=== PATIENT | male | born 1965 | race Caucasian/White ===

== ENCOUNTER 2016-09-04 15:00 | Inpatient (IN) | payer OTHER, MEDICARE ==
[~2016-09-04] VITALS: Ht 175.3 cm; Wt 117.2 kg
[2016-10-30] MEDS ORDERED: MULT-6 PO (12:07)
[2016-10-30] MEDS ORDERED: TRAM50TA PO (12:07)
[2016-10-30] MEDS ORDERED: LISI-515 PO (12:07)
[2016-10-30] MEDS ORDERED: FISH500C PO (12:07)
[2016-11-16] MEDS ORDERED: EXPAREL PERI-ARTICULAR INJECTION (TOTAL VOL. 60 ML) P-ARTICULR SCH ×2 (06:15)
[2016-11-16] MEDS: CHLORHEXIDINE GLUCONATE 4% SOLN 120 ML BTL TOP SCH ×2 (06:15→20:22)
[2016-11-16] MEDS: TRANEXAMIC ACID IV SCH ×2 (06:15→08:49)
[2016-11-16] MEDS ORDERED: ceFAZolin 2 GM PREMIX 50 ML IV SCH (06:15)
[2016-11-16] MEDS: TRANEXAMIC PERI-ARTICULAR 3,000 MG/NS 100 ML P-ARTICULR SCH ×4 (06:15→09:20)
[2016-11-16] MEDS: SODIUM CHLORIDE 0.9% IV SCH ×2 (06:15→08:49)
[2016-11-16] MEDS: ROPIVACAINE PERI-ARTICULAR INJECTION. PERIART SCH ×10 (06:15→09:20)
[2016-11-16] MEDS ORDERED: VANCOMYCIN 1000 MG/NS 250 ML (for <70 kg) IV SCH ×2 (06:15)
[2016-11-16] MEDS ORDERED: DEXAMETHASONE SOD PHOS 20 MG/5 ML VIAL IV ONE (06:15)
[2016-11-16] MEDS: POVIDONE IODINE 7.5% SCRUB 118 ML BOTTLE TOP SCH ×2 (06:15→20:22)
[2016-11-16] MEDS ORDERED: VALT500T PO (06:27)
[2016-11-16] MEDS ORDERED: METOPROLOL TARTRATE 25 MG TAB PO PRN (06:30)
[2016-11-16] MEDS ORDERED: INSULIN HUMAN REGULAR 1,000 UNITS/10 ML VIAL SQ PRN (06:30)
[2016-11-16] MEDS ORDERED: SODIUM CHLORID 0.9% 500 ML IV SCH (06:30)
[2016-11-16] MEDS ORDERED: LACTATED RINGER'S 1000 ML IV SCH (06:30)
[2016-11-16 06:31] VITALS: BP 159/94; PULSE 59; RESP 20; TEMP 98.2; O2SAT 95
[2016-11-16] MEDS ORDERED: GENTAMICIN SULFATE 80 MG/2 ML VIAL ONE (07:02)
[2016-11-16] MEDS ORDERED: APIX2.5T PO (07:20)
[2016-11-16] MEDS ORDERED: HYDR-3288 PO (07:21)
[2016-11-16] MEDS ORDERED: ZOLPIDEM TARTRATE 5 MG TAB PO PRN (07:30)
[2016-11-16] MEDS ORDERED: SODIUM CHLORIDE 0.9% FLUSH 5 ML FLUSH IVF PRN (07:30)
[2016-11-16] MEDS ORDERED: diphenhydrAMINE HCL 50 MG/ML VIAL IV PRN (07:30)
[2016-11-16] MEDS ORDERED: Post-op Orders (for Pharmacy) MISC XX ONE (07:30)
[2016-11-16] MEDS ORDERED: ACETAMINOPHEN/HYDROcodone 325 MG/7.5 MG TAB PO PRN (07:30)
[2016-11-16] MEDS ORDERED: ALUMINUM/MAGNESIUM/SIMETH 30 ML CUP PO PRN (07:30)
[2016-11-16] MEDS ORDERED: ONDANSETRON HCL 4 MG/2 ML VIAL IVP PRN (07:30)
[2016-11-16] MEDS ORDERED: NALOXONE HCL 0.4 MG/ML AMP IV PRN (07:30)
[2016-11-16] MEDS ORDERED: BISACODYL 10 MG SUPP PR PRN (07:30)
[2016-11-16] MEDS ORDERED: MIDAZOLAM HCL 5 MG/5 ML VIAL ONE (07:59)
[2016-11-16] MEDS: SODIUM CHLORIDE 0.9% FLUSH 5 ML FLUSH IVF SCH ×2 (09:00→20:26)
[2016-11-16] MEDS: LISINOPRIL 20 MG TAB PO SCH (09:00)
[2016-11-16] MEDS: SODIUM CHLOR 0.9% 1000 ML INJ 1,000 ML IV SCH ×3 (09:00→20:22)
[2016-11-16] MEDS ORDERED: *morphine SULFATE 8 MG/ML PERIprocedure ONLY ONE (11:14)
--- NOTE | 2016-11-16 11:33 | RADRPT ---
EXAM DATE/TIME: 11/16/2016 11:06 [facility] COMPARISON: No previous studies available for comparison. INDICATIONS : Post right knee surgery MEDICAL HISTORY : None. SURGICAL HISTORY : None. ENCOUNTER: Initial ACUITY: 1 day PAIN SCORE: 6/10 LOCATION: Right knee FINDINGS: AP and lateral views of the knee following arthroplasty reveals a prosthesis in anatomic alignment. F racture is not appreciated. CONCLUSION: Status post total knee arthroplasty. Víctor Tran MD FACR Board Certified Radiologist. This report was verified electronically.
[2016-11-16] MEDS ORDERED: PROPOFOL 200 MG/20 ML AMP IV ONE (12:00)
[2016-11-16] MEDS ORDERED: DO NOT ADM ANY ANTICOAGULANT DRUGS XX PRN (12:00)
[2016-11-16] MEDS ORDERED: ONDANSETRON HCL 4 MG/2 ML VIAL IV PUSH ONE (12:00)
[2016-11-16] MEDS ORDERED: BUPIVACAINE LIPOSOME PF 1.3% 20 ML VIAL ONE (12:21)
[2016-11-16] MEDS ORDERED: fentaNYL CITRATE 250 MCG/5 ML AMP ONE (12:25)
[2016-11-16 12:30] VITALS: BP 146/75; PULSE 78; RESP 18; TEMP 96.7; O2SAT 94
--- NOTE | 2016-11-16 12:41 | PD.CONS ---
[facility] By Reason for Consult medical management Primary Care Physician Non-Staff Diagnoses: History of Present Illness patient is a 50 y/o male with history of osteoarthritis and hypertension who underwent right total knee arthroplasty today. at the time of my evaluation he was fairly comfortable with some pain to the right knee. otherwise he denies any other complaints. Review of Systems Constitutional: DENIES: Fever, Weight loss, Chills, Night Sweats Eyes: DENIES: Blurred vision, Diplopia, Vision loss, Double Vision Ears, nose, mouth, throat: DENIES: Tinnitus, Vertigo, Throat pain, Epistaxis Respiratory: DENIES: Apneas, Cough, Snoring, Wheezing, Hemoptysis, Sputum production, Shortness of breath Cardiovascular: DENIES: Chest pain, Palpitations, Syncope, Dyspnea on Exertion , PND, Lower Extremity Edema, Orthopnea, Claudication Gastrointestinal: DENIES: Abdominal pain, Black stools, Bloody stools, Constipation, Diarrhea, Nausea, Vomiting, Difficulty Swallowing, Anorexia Genitourinary: DENIES: Urinary frequency, Urgency, Hematuria, Dysuria Musculoskeletal: COMPLAINS OF: Joint pain (right knee), DENIES: Muscle aches, Stiffness, Joint Swelling Integumentary: DENIES: Rash Neurologic: DENIES: Abnormal gait, Headache, Localized weakness, Paresthesias, Seizures, Speech Problems, Tremor, Poor Balance Psychiatric: DENIES: Anxiety, Confusion, Mood changes, Depression, Hallucinations, Agitation, Suicidal Ideation, Homicidal Ideation, Delusions Past Family Social History Allergies: Coded Allergies: No Known Allergies (Unverified , 11/16/16) Past Medical History hypertension osteoarthritis history of genital herpes Past Surgical History appendectomy tonsillectomy elbow surgery Reported Medications lisinopril omega 3 Active Ordered Medications Current Medications Povidone Iodine (Betadine 7.5% Scrub) 1 applic ONCE TOP ; Start 11/16/16 at 06: 15; Stop 11/19/16 at 06:14 Chlorhexidine Gluconate 1 applic 1 applic ONCE TOP ; Start 11/16/16 at 06:15; Stop 11/19/16 at 06:14 Cefazolin Sodium/ Dextrose 50 ml @ 100 mls/hr PRODUCT SPECIALIST IV Last administered on 11/16/16t 07:08; Start 11/16/16 at 06:15; Stop 11/19/16 at 06:14 Vancomycin HCl 1000 mg/Sodium Chloride 250 ml @ 250 mls/hr PRODUCT SPECIALIST IV Last administered on 11/16/16 07:11; Start 11/16/16 at 06:15; Stop 11/19/16 at 06:14 Tranexamic Acid 1557 mg/Sodium Chloride 115.57 ml @ 200 mls/ hr ONCE IV Last administered on 11/16/16 08:49; Start 11/16/16 at 06:15; Stop 11/16/16 at 15:00 Bupivacaine Liposome 20 ml/ Sodium Chloride 60 ml @ 120 mls/hr ONCE P-ARTICULR ; Start 11/16/16 at 06:15; Stop 11/17/16 at 06:14 Ropivacaine 24.63 ml/Ketorolac Tromethamine 30 mg/Epinephrine HCl 0.5 mg/ Clonidine 80 mcg/ Sodium Chloride 100 ml @ 200 mls/hr ONCE PERIART Last administered on 11/16/16 09:20; Start 11/16/16 at 06:15; Stop 11/17/16 at 06:14 Tranexamic Acid/ Sodium Chloride (Cyklokapron Inj/ NS Inj) 130 ml @ 260 mls/hr ONCE P-ARTICULR Last administered on 11/16/16 09:20; Start 11/16/16 at 06:15; Stop 11/17/16 at 06:14 Dexamethasone Sodium Phosphate 10 mg 10 mg ONCE ONCE IV Last administered on 06:36; Start 11/16/16 at 06:15; Stop 11/16/16 at 06:16; Status DC Lactated Ringer's 1,000 ml @ 30 mls/hr Q24H IV Last administered on 11/16/16 06:30; Start 11/16/16 at 06:30; Stop 11/16/16 at 08:14; Status DC Sodium Chloride (NS 500 ml Inj) 500 ml @ 30 mls/hr [id number] IV ; Start 11/16/16 at 06:30; Stop 11/16/16 at 08:14; Status DC Insulin Human Regular (NovoLIN R INJ) See Protocol Table ... UNSCH X1 PRN SQ SEE PROTOCOL; Start 11/16/16 at 06:30; Stop 11/17/16 at 06:29 Metoprolol Tartrate (Lopressor) 25 mg UNSCH X1 PRN PO SEE LABEL COMMENTS; Start 11/16/16 at 06:30; Stop 11/17/16 at 06:29 Gentamicin Sulfate (Gentamicin Inj) 240 mg STK-MED ONCE .ROUTE Last administered on 11/16/16t 09:20; Start 11/16/16 at 07:02; Stop 11/16/16 at 07:14 ; Status DC Lisinopril 20 mg 20 mg DAILY PO ; Start 11/16/16 at 09:00 Sodium Chloride (NS 1000 ml Inj) 1,000 ml @ 100 mls/hr Q10H IV ; Start at 09:00 IV Flush (NS Flush) 2 ml UNSCH PRN IVF FLUSH AFTER USING IV ACCESS; Start 11/16 at 07:30 IV Flush 2 ml 2 ml BID IVF ; Start 11/16/16 at 09:00 Cefazolin Sodium/ Sodium Chloride (Ancef Inj/NS Inj) 100 ml @ 200 mls/hr Q6H IV ; Start 11/16/16 at 14:00; Stop 11/17/16 at 02:29 Miscellaneous Information (Post-op Orders (for Pharmacy)) STAT ONCE XX ; Start 11/16/16 at 07:30; Stop 11/16/16 at 11:48; Status DC Enoxaparin Sodium (Lovenox Inj) 40 mg Q24H SQ ; Start 11/17/16 at 10:00 Morphine Sulfate (Morphine Inj) 3 mg Q3H PRN IV PUSH Pain >7 when off DEPUTY ATTORNEY GENERAL; Start 11/16/16 at 07:30 Acetaminophen/ Hydrocodone Bitart (Concho 7.5-325 Mg) 1 tab Q4H PRN PO PAIN LESS THAN 5 ON SCALE; Start 11/16/16 at 07:30 Acetaminophen/ Hydrocodone Bitart (Concho 7.5-325 Mg) 2 tab Q4H PRN PO PAIN SCALE 5 TO 10; Start 11/16/16 at 07:30 Multivitamins/ Minerals Therapeutic (Theragran M Tab) 1 tab BID PO ; Start 11/17 at 21:00; Stop 01/16/17 at 20:59 Ondansetron HCl (Zofran Inj) 4 mg Q6H PRN IVP NAUSEA OR VOMITING; Start at 07:30 Docusate Sodium (Colace) 100 mg BID PO ; Start 11/17/16 at 21:00 Al Hydrox/Mg Hydrox/Simethicone (Mag-Al Plus Susp Liq) 30 ml Q6H PRN PO INDIGESTION; Start 11/16/16 at 07:30 Zolpidem Tartrate (Ambien) 5 mg HS PRN PO SLEEP; Start 11/16/16 at 07:30 Bisacodyl (Dulcolax Supp) 10 mg DAILY PRN GA CONSTIPATION; Start 11/16/16 at 07 :30 Magnesium Hydroxide (Milk Of Magnesia Liq) 30 ml DAILY PRN PO CONSTIPATION; Start 11/16/16 at 07:30 Naloxone HCl (Narcan Inj) 0.4 mg UNSCH PRN IV RESPIRATORY RATE LESS THAN 10; Start 11/16/16 at 07:30 Diphenhydramine HCl (Benadryl Inj) 25 mg Q6H PRN IV ITCHING; Start 11/16/16 at 07:30 Midazolam HCl (Versed Inj) 5 mg STK-MED ONCE .ROUTE Last administered on t 08:03; Start 11/16/16 at 07:59; Stop 11/16/16 at 08:07; Status DC Morphine Sulfate (*morphine INJ PERIprocedure ONLY) 8 mg STK-MED ONCE .ROUTE ; Start 11/16/16 at 11:14; Stop 11/16/16 at 11:15; Status DC Miscellaneous Information ALL NURSING DEPARTME... UNSCH PRN XX SEE LABEL COMMENTS; Start 11/16/16 at 12:00; Stop 11/17/16 at 11:59 Fentanyl Citrate (fentaNYL INJ) 100 mcg STK-MED ONCE .ROUTE ; Start 11/16/16 at 12:25; Stop 11/16/16 at 12:26; Status DC Fentanyl Citrate (fentaNYL INJ) 250 mcg STK-MED ONCE .ROUTE ; Start 11/16/16 at 12:25; Stop 11/16/16 at 12:26; Status DC Family History colon cancer in father Social History no smoking or drinking. Physical Exam Vital Signs Vital Signs Date Time Temp Pulse Resp B/P Pulse Ox O2 Delivery O2 Flow Rate FiO2 11/16/16 06:31 98.2 59 20 159/94 95 Physical Exam GENERAL: This is a well-nourished, well-developed patient, in no apparent distress. SKIN: No rashes, ecchymoses or lesions. Cool and dry. HEAD: Atraumatic. Normocephalic. No temporal or scalp tenderness. EYES: Pupils equal round and reactive. Extraocular motions intact. No scleral icterus. No injection or drainage. ENT: Nose without bleeding, purulent drainage or septal hematoma. Throat without erythema, tonsillar hypertrophy or exudate. Uvula midline. Airway patent. NECK: Trachea midline. No JVD or lymphadenopathy. Supple, nontender, no meningeal signs. CARDIOVASCULAR: Regular rate and rhythm without murmurs, gallops, or rubs. RESPIRATORY: Clear to auscultation. Breath sounds equal bilaterally. No wheezes , rales, or rhonchi. GASTROINTESTINAL: Abdomen soft, non-tender, nondistended. No hepato-splenomegaly , or palpable masses. No guarding. MUSCULOSKELETAL: right knee/leg covered with clean dressing. NEUROLOGICAL: Awake and alert. Cranial nerves II through XII intact. Motor and sensory grossly within normal limits. Five out of 5 muscle strength in all muscle groups. Normal speech. Laboratory Laboratory Tests Test 11/16/16 06:20 Blood Type O POSITIVE Antibody Screen NEGATIVE Blood Bank Comment Imaging Last Impressions Knee X-Ray 11/16/16 0718 Signed Impressions: Service Date/Time: Wednesday, November 16, 2016 11:06 - CONCLUSION: Status post total knee arthroplasty. Víctor Tran MD Assessment and Plan Assessment and Plan A/P - osteoarthritis of the right knee- s/p right total knee arthroplasty continue with pain control- management per ortho -hypertension; resume lisinopril- will monitor and adjust the regimen as needed -DVT prophylaxis with lovenox- per ortho thank you for the consult. Discussed Condition With the patient. Ryan Montero MD Nov 16, 2016 12:41
[2016-11-16] MEDS: ACETAMINOPHEN/HYDROcodone 325 MG/7.5 MG TAB PO PRN ×3 (13:32→22:24)
[2016-11-16] MEDS: MORPHINE SULFATE 4 MG/ML INJ IV PUSH PRN (15:00)
[2016-11-16 16:00] VITALS: BP 131/73; PULSE 75; RESP 18; TEMP 96.7; O2SAT 73
[2016-11-16 20:21] VITALS: BP 133/72; PULSE 75; RESP 17; TEMP 99; O2SAT 95
[2016-11-17 00:28] VITALS: BP 102/55; PULSE 80; RESP 17; TEMP 97.3; O2SAT 95
[2016-11-17 04:39] VITALS: BP 121/64; PULSE 75; RESP 17; TEMP 97.4; O2SAT 98
[2016-11-17 05:20] LABS: MEAN CELL VOLUME 88.3 FL (80.0-100.0); MEAN CORPUSCULAR HEMOGLOBIN 29.8 PG (27.0-34.0); MEAN CORPUSCULAR HGB CONC 33.8 % (32.0-36.0); PLATELET COUNT 112 TH/MM3 (150-450); RED BLOOD COUNT 4.52 MIL/MM3 (4.50-5.90); RED CELL DISTRIBUTION WIDTH 14.5 % (11.6-17.2); REVIEW FLAG FINAL; WHITE BLOOD COUNT 11.5 TH/MM3 (4.0-11.0)
[2016-11-17 05:48] LABS: BICARBONATE 25.9 MEQ/L (21.0-32.0); POTASSIUM 3.9 MEQ/L (3.5-5.1)
[2016-11-17] MEDS: ACETAMINOPHEN/HYDROcodone 325 MG/7.5 MG TAB PO PRN ×4 (06:36→20:49)
[2016-11-17 08:00] VITALS: BP 135/75; PULSE 78; RESP 20; TEMP 98.1; O2SAT 95
--- NOTE | 2016-11-17 08:15 | PD.ORT.PN ---
Subjective Post Op Day #: 1 Subjective Remarks painful but doing well. Objective Vitals Vital Signs Date Time Temp Pulse Resp B/P Pulse Ox O2 Delivery O2 Flow Rate FiO2 11/17/16 04:39 97.4 75 17 121/64 98 11/17/16 00:28 97.3 80 17 102/55 95 11/16/16 20:21 99.0 75 17 133/72 95 11/16/16 16:00 96.7 75 18 131/73 73 11/16/16 12:30 96.7 78 18 146/75 94 11/16/16 12:00 72 16 151/87 98 Nasal Cannula 2 11/16/16 11:45 80 16 161/81 96 Nasal Cannula 2 11/16/16 11:30 76 16 159/89 98 Nasal Cannula 2 11/16/16 11:15 82 16 162/85 97 Nasal Cannula 2 11/16/16 11:00 80 16 156/80 96 Nasal Cannula 2 11/16/16 10:49 97.8 96 16 168/96 95 Nasal Cannula 2 I/O 11/16/16 11/16/16 11/16/16 11/17/16 11/17/16 11/17/16 07:00 15:00 23:00 07:00 15:00 23:00 Intake Total 100 ml 480 ml 360 ml Output Total 550 ml 700 ml Balance -450 ml -220 ml 360 ml Intake Oral 480 ml 360 ml IV Total 100 ml Output Urine Total 550 ml 700 ml # Voids 3 # Bowel Movements 0 0 0 Result Diagram: 11/17/16 0416 11/17/16 0416 Objective Remarks in chair, nad dressing c/d/i neg homans nvi Assessment & Plan Ortho Post Op Day #: 1 Problem List: Assessment and Plan s/p R TKA wbat daily dressing changes lovenox - d/c on Eliquis d/c planning home with [facility] and pt rx in chart f/up dr. mendoza 2 weeks Jonathan Kay Nov 17, 2016 08:14
--- NOTE | 2016-11-17 08:16 | HHI.DCPOC ---
Discharge Care Plan Diagnosis: (1) Primary localized osteoarthrosis, lower leg Your Health Problems Are: Difficulty with ADL Goals to Promote Your Health * To prevent worsening of your condition and complications * To maintain your health at the optimal level Directions to Meet Your Goals Take your medications as prescribed Follow your dietary instruction Follow activity as directed Keep your appointments as scheduled Take your immunizations and boosters as scheduled If your symptoms worsen call your PCP, if no PCP go to Urgent Care Center or Emergency Room Smoking is Dangerous to Your Health. Avoid second hand smoke Call the 24-hour hour crisis hotline for domestic abuse at Jonathan Kay Nov 17, 2016 08:16
--- NOTE | 2016-11-17 08:17 | HHI.FF ---
Face to Face Verification Diagnosis: (1) Primary localized osteoarthrosis, lower leg Physical Therapy Gait training, Safety evaluation, Transfer training, bed to chair Knee: Total knee, Protocol: Right, Full weight bearing Right LE Weight Bearing: WB as tolerated Nursing RN: 3 days/week x 2 weeks Nursing: Dressing changes Dressing Changes: Daily dressing change I have seen patient Manuel Callahan on 11/17/16. My clinical findings support the need for the requested home health care services because: Limited ability to care for self High risk of falls I certify that my clinical findings support that this patient is homebound because: Post-op weakness Unsteady gait/balance Jonathan Kay Nov 17, 2016 08:17
[2016-11-17] MEDS ORDERED: WALKER WHEELS/F1 MIS (08:18)
[2016-11-17] MEDS ORDERED: MISC-163 (08:18)
[2016-11-17] MEDS ORDERED: CPMMACHINE (08:18)
[2016-11-17] MEDS: MAGNESIUM HYDROXIDE SUSP 30 ML CUP PO PRN ×2 (08:44→20:55)
[2016-11-17] MEDS: LISINOPRIL 20 MG TAB PO SCH (08:45)
[2016-11-17] MEDS: SODIUM CHLORIDE 0.9% FLUSH 5 ML FLUSH IVF SCH ×2 (08:45→20:47)
[2016-11-17] MEDS: ENOXAPARIN SODIUM 40 MG/0.4 ML SYRINGE SQ SCH (10:30)
--- NOTE | 2016-11-17 10:37 | HHI.PR ---
Subjective Remarks Follow-up right TKA. He is doing okay been out of bed. Discussed with RN Objective Vitals Vital Signs Date Time Temp Pulse Resp B/P Pulse Ox O2 Delivery O2 Flow Rate FiO2 11/17/16 08:00 98.1 78 20 135/75 95 11/17/16 04:39 97.4 75 17 121/64 98 11/17/16 00:28 97.3 80 17 102/55 95 11/16/16 20:21 99.0 75 17 133/72 95 11/16/16 16:00 96.7 75 18 131/73 73 11/16/16 12:30 96.7 78 18 146/75 94 11/16/16 12:00 72 16 151/87 98 Nasal Cannula 2 11/16/16 11:45 80 16 161/81 96 Nasal Cannula 2 11/16/16 11:30 76 16 159/89 98 Nasal Cannula 2 11/16/16 11:15 82 16 162/85 97 Nasal Cannula 2 11/16/16 11:00 80 16 156/80 96 Nasal Cannula 2 11/16/16 10:49 97.8 96 16 168/96 95 Nasal Cannula 2 I/O 11/16/16 11/16/16 11/16/16 11/17/16 11/17/16 11/17/16 07:00 15:00 23:00 07:00 15:00 23:00 Intake Total 100 ml 480 ml 360 ml Output Total 550 ml 700 ml Balance -450 ml -220 ml 360 ml Intake Oral 480 ml 360 ml IV Total 100 ml Output Urine Total 550 ml 700 ml # Voids 3 # Bowel Movements 0 0 0 Result Diagram: 11/17/16 0416 11/17/16 0416 Objective Remarks GENERAL: Well-developed, well-nourished in no distress SKIN: Warm and dry. HEAD: Atraumatic. Normocephalic. EYES: Pupils equal and round. No scleral icterus. No injection or drainage. ENT: No nasal bleeding or discharge. Mucous membranes pink and moist. NECK: Trachea midline. No JVD. CARDIOVASCULAR: Regular rate and rhythm. RESPIRATORY: No accessory muscle use. Clear to auscultation. Breath sounds equal bilaterally. GASTROINTESTINAL: Abdomen soft, non-tender, nondistended. MUSCULOSKELETAL: Extremities without clubbing, cyanosis, or edema. No obvious deformities. NEUROLOGICAL: Awake and alert. No obvious cranial nerve deficits. Motor grossly within normal limits. Five out of 5 muscle strength in the arms and legs. Normal speech. PSYCHIATRIC: Appropriate mood and affect; insight and judgment normal. Procedures Right TKA A/P Problem List: (1) Essential hypertension ICD Code: I10 Status: Chronic Assessment and Plan Osteoarthritis of the right knee- s/p right total knee arthroplasty. Stable continue with pain control- management per ortho hypertension; resume lisinopril- will monitor and adjust the regimen as needed. Stable Hyperglycemia. Obtain A1c. We'll monitor Leukocytosis. This is mild. Likely reactive. We'll monitor DVT prophylaxis with lovenox- per ortho Discharge Planning [facility] Piero Trinh MD Nov 17, 2016 10:37
[2016-11-17 12:00] VITALS: BP 146/77; PULSE 71; RESP 20; TEMP 96.7; O2SAT 95
[2016-11-17] MEDS: MORPHINE SULFATE 4 MG/ML INJ IV PUSH PRN ×2 (13:39→18:59)
[2016-11-17] MEDS: SODIUM CHLOR 0.9% 1000 ML INJ 1,000 ML IV SCH ×2 (14:05→20:06)
[2016-11-17 16:00] VITALS: BP 138/80; PULSE 74; RESP 20; TEMP 98.5; O2SAT 98
[2016-11-17 17:44] LABS: HEMOGLOBIN A1b 1.5 %; HEMOGLOBIN Ao 86.2 %; HEMOGLOBIN LA1C 2.1 %; HEMOGLOBIN P3 3.5 %
[2016-11-17] MEDS: POVIDONE IODINE 7.5% SCRUB 118 ML BOTTLE TOP SCH (20:07)
[2016-11-17] MEDS: CHLORHEXIDINE GLUCONATE 4% SOLN 120 ML BTL TOP SCH (20:07)
[2016-11-17 20:24] VITALS: BP 140/81; PULSE 79; RESP 18; TEMP 98.7; O2SAT 99
[2016-11-17] MEDS: DOCUSATE SODIUM 100 MG CAP PO SCH (20:47)
[2016-11-17] MEDS: MULTIVITAMINS/MINERALS THERAPEUTIC TAB PO SCH (20:48)
[2016-11-18 00:26] VITALS: BP 122/67; PULSE 73; RESP 17; TEMP 97.9; O2SAT 98
[2016-11-18] MEDS: ACETAMINOPHEN/HYDROcodone 325 MG/7.5 MG TAB PO PRN ×3 (01:26→09:44)
[2016-11-18 06:53] LABS: HEMATOCRIT 38.6 % (39.0-51.0); MEAN CELL VOLUME 89.4 FL (80.0-100.0); MEAN CORPUSCULAR HEMOGLOBIN 29.5 PG (27.0-34.0); PLATELET COUNT 101 TH/MM3 (150-450); RED BLOOD COUNT 4.32 MIL/MM3 (4.50-5.90); RED CELL DISTRIBUTION WIDTH 14.9 % (11.6-17.2); REVIEW FLAG FINAL; WHITE BLOOD COUNT 8.2 TH/MM3 (4.0-11.0)
[2016-11-18 07:07] LABS: BICARBONATE 26.2 MEQ/L (21.0-32.0); POTASSIUM 3.9 MEQ/L (3.5-5.1)
[2016-11-18 08:00] VITALS: BP 134/98; PULSE 77; RESP 18; TEMP 96.5; O2SAT 100
--- NOTE | 2016-11-18 08:19 | PD.ORT.PN ---
Subjective Post Op Day #: 2 Subjective Remarks painful but doing well. feeling better today. Objective Vitals Vital Signs Date Time Temp Pulse Resp B/P Pulse Ox O2 Delivery O2 Flow Rate FiO2 11/18/16 00:26 97.9 73 17 122/67 98 11/17/16 20:24 98.7 79 18 140/81 99 11/17/16 16:00 98.5 74 20 138/80 98 11/17/16 12:00 96.7 71 20 146/77 95 I/O 11/17/16 11/17/16 11/17/16 11/18/16 11/18/16 11/18/16 07:00 15:00 23:00 07:00 15:00 23:00 Intake Total 360 ml 240 ml 720 ml 360 ml Balance 360 ml 240 ml 720 ml 360 ml Intake Oral 360 ml 240 ml 720 ml 360 ml # Voids 3 6 3 3 # Bowel Movements 0 0 0 0 Result Diagram: 11/18/1625 11/18/16 0625 Objective Remarks in bed, nad incision no erythema, no drainage neg homans nvi Assessment & Plan Ortho Post Op Day #: 2 Problem List: Assessment and Plan s/p R TKA wbat daily dressing changes lovenox - d/c on Eliquis d/c planning home with [facility] and pt - cleared for d/c today rx in chart f/up dr. mendoza 2 weeks Jonathan Kay Nov 18, 2016 08:19
[2016-11-18] MEDS: MAGNESIUM HYDROXIDE SUSP 30 ML CUP PO PRN (08:31)
[2016-11-18] MEDS: MULTIVITAMINS/MINERALS THERAPEUTIC TAB PO SCH (08:31)
[2016-11-18] MEDS: DOCUSATE SODIUM 100 MG CAP PO SCH (08:31)
[2016-11-18] MEDS: LISINOPRIL 20 MG TAB PO SCH (08:31)
[2016-11-18] MEDS: SODIUM CHLORIDE 0.9% FLUSH 5 ML FLUSH IVF SCH (08:31)
[2016-11-18] MEDS: ENOXAPARIN SODIUM 40 MG/0.4 ML SYRINGE SQ SCH (09:43)
--- NOTE | 2016-11-19 10:38 | MP ---
cc: ANATOLIY LUCAS DATE OF SURGERY 11/16/2016 PREOPERATIVE DIAGNOSIS Right knee osteoarthritis POSTOPERATIVE DIAGNOSES Right knee osteoarthritis PROCEDURE Right total knee arthroplasty SURGEON Dr. Zach Lucas RETAIL EVENT ASSISTANT SHAISTA Degroot ANESTHESIA General with an adductor canal block. REVIEW OF SYSTEMS 50 mL TOURNIQUET TIME 49 minutes at 250 mmHg COMPLICATIONS None. IMPLANTS DePuy attune size eight posterior stabilized femoral component size eight rotating platform tibia baseplate, size 5 mm polyethylene tibial insert size 38 mm patella. JUSTIFICATION This patient is a 50-year-old male with a history of severe osteoarthritis involving the right knee, history of severe disabling pain with standing, walking, ambulation with activities, even severe pain at rest. He has failed greater than 3 months of nonoperative conservative treatment to include medication therapy, injections, ambulatory assisted aids, home exercise programs, weight loss attempts, activity modification. X-ray of the right knee revealed severe osteoarthritis with joint space narrowing, subchondral sclerosis, subchondral cyst osteophyte formation and varus deformity. The patient was counseled as to risks, benefits and alternatives to a total knee arthroplasty. The risks were discussed which include but are limited to anesthesia, bleeding, infection damage to nerves, blood vessels, pain, stiffness, failure of components, blood clots, pulmonary embolism and even . The patient's pain was severe. He favored the benefits over the risks and did wish to proceed with surgery. PROCEDURE IN DETAIL A written consent was obtained. Patient was identified by name, taken to the operating room and placed supine on operating room table. General anesthesia was administered as well as 2 grams of IV Ancef and 1 gram of IV vancomycin. A well-padded tourniquet was placed on the right thigh. The right lower extremity prepped and draped using isopropyl alcohol, Hibiclens solution and Chloraprep solution. An Esmarch bandage was used to exsanguinate the right lower extremity. A tourniquet was inflated at 250 mm. A longitudinal incision was made over the anterior aspect of the right knee. A medial parapatellar arthrotomy was performed. The patella was everted. Patellar resection guide was used to resect 9.5 mm of patella. The size 38 mm guide was placed. Three drill holes placed and 38 mm trial fit well. Attention was turned to the femur where an intramedullary guide danis was placed. The distal femoral guide was set to remove 10 mm of distal femur, 5 degrees off the anatomic valgus axis alignment. An oscillating saw was used to perform the distal femoral cut. Attention was turned to the tibia where an oscillating saw was used to resect the tibia measured 5 mm off the lowest portion of the medial tibial plateau. A 5 mm spacer block showed full extension. Attention was turned back to the femur where AP sizing block measured a size eight. The anterior reference 3 degree external rotational guide was used to pin a size [address]. The anterior posterior chamfer cuts were performed. A size eight PCL box was pinned in place. The PCL was boxed out with an oscillating saw. Medial and lateral meniscus remnants were removed as well as bone and soft tissue debris from the posterior portion of the knee. A size eight tibia baseplate was pinned in place. Tibial was drilled with a punch. Trial components were evaluated and cemented in place. With the 5-mm tibial insert, the leg achieved full extension at 0 degrees and flexion to 140. No evidence of tibial lift-off. Varus-valgus balance appeared appropriate and symmetric. The patella was noted to track centrally. The tourniquet was deflated. Bovie cautery was used for hemostasis. The knee was thoroughly irrigated with sterile saline pulse lavage antibiotic impregnated solution. The arthrotomy incision was closed with #1 Vicryl suture. Subcutaneous layer with 2-0 Vicryl suture. Skin was closed with Dermabond. Sterile dressing applied. The patient tolerated procedure well. No intraoperative complications noted. Semaj Kay physician events administrative assistant certified was present during entire procedure to include patient positioning and the procedure itself. The medical necessity of a physician events administrative assistant was indicated in this case due to the complexity of the procedure. He assisted with appropriate manipulation of the leg and also retraction of muscle, tendon, bone and neurovascular structure. He assisted with bone cuts and implantation of the prosthetic replacement. MD RAMBO Ramírez/ /10:25 AM /10:06 AM
--- NOTE | 2016-11-25 23:15 | MD ---
cc: ANATOLIY DOAN ADMISSION DATE: 11/16/2016 DISCHARGE DATE: 11/18/2016 ADMISSION DIAGNOSIS Severe degenerative osteoarthritis right knee DISCHARGE DIAGNOSIS Severe degenerative osteoarthritis right knee HISTORY OF PRESENT ILLNESS Mr. Callahan is a 50-year-old male who presented to [facility] for evaluation by Dr. Anatoliy Doan regarding his bilateral knee pain, right greater than left. The patient states the pain has been progressive for several years and he has been treated for this ailment for several years at this point in time. He notes his pain in the right knee is a severe constant aching sensation, is aggravated by weightbearing activities. He states he has no alleviating factors at this point time and in the past he has tried medications, bracing, physical therapy, home exercise program, weight loss attempts and multiple injections all without long-lasting relief of symptoms. He does have x-ray evidence of severe degenerative osteoarthritis of the right knee. While in the office the patient was counseled as to his diagnosis and treatment options. The risks, benefits, indications of all discussed in great detail. The patient did elect proceed with surgical intervention to include a right total knee arthroplasty. Date of surgery: 11/16/2016 Procedure: Right total knee arthroplasty. Postop: After surgery the patient was admitted to [facility] where he received appropriate medical management, pain control, DVT prophylaxis as well as physical therapy. Discharge: Once being discharged from the hospital the patient is cleared to go home where he received home health care and home physical therapy. He is in stable condition. He may weightbear as tolerated. He has received daily dressing changes and has been instructed on appropriate wound care management. He has been provided prescriptions for pain control as well as DVT prophylaxis medication. He has also been provided a follow-up appointment see Dr. Anatoliy Doan in the office in approximately 2 weeks from the date of surgery. The patient has asked appropriate questions which have all been answered. The patient is cleared for discharge. Dictated by: SHAISTA Pro. MD RAMBO Ramírez/NYAS[place] /8:22 AM /11:09 PM
== END 2016-11-18 10:53 | disposition home health service (06) | DRG 470 ==
LOC: HSDI 11-16 05:39 → N06B 11-16 12:42
PROVIDERS: ADMIT Orthopaedic Surgery Sports Medicine; ATTEND Orthopaedic Surgery Sports Medicine
PROC: 3E0T3CZ (ICD-10-PCS; 2016-11-16)
PROC: 0SRC0J9 Replacement of Right Knee Joint with Synthetic Substitute, Cemented, Open Approach (ICD-10-PCS; principal; 2016-11-16 08:27)
DX: M17.11 Unilateral primary osteoarthritis, right knee (principal); I10 Essential (primary) hypertension; R73.9 Hyperglycemia, unspecified; D72.829 Elevated white blood cell count, unspecified; Z79.01 Long term (current) use of anticoagulants
CPT/HCPCS: 73560; 80048; 83036; 85027; 86850; 86900; 86901; 94150; C1776; C9290; J0171; J0690; J0735; J1100; J1580; J1650; J1885; J2250; J2270; J2405; J2795; J3010; J3370; J7030; J7050; J7120; L1830

== ENCOUNTER 2017-03-19 14:17 | Inpatient (IN) | payer OTHER, MEDICARE ==
[~2017-03-19] VITALS: Ht 175.3 cm; Wt 104.0 kg
[~2017-03-19 14:17] MED LIST: APIX2.5T PO; CPMMACHINE; FISH500C PO; HYDR-3288 PO; LISI-515 PO; TRAM50TA PO; VALT500T PO; WALKER WHEELS/F1 MIS
[2017-04-09] MEDS ORDERED: CENTCHW4 CHEW (13:13)
[2017-04-12] MEDS ORDERED: VANCOMYCIN 1000 MG/NS 250 ML (for <70 kg) IV SCH ×2 (07:30)
[2017-04-12] MEDS ORDERED: DEXAMETHASONE SOD PHOS 20 MG/5 ML VIAL IV PRN (07:30)
[2017-04-12] MEDS ORDERED: INSULIN HUMAN REGULAR 1,000 UNITS/10 ML VIAL SQ PRN (07:30)
[2017-04-12] MEDS ORDERED: ROPIVACAINE PERI-ARTICULAR INJECTION. P-ARTICULR SCH ×5 (07:30)
[2017-04-12] MEDS ORDERED: ceFAZolin 2 GM PREMIX 50 ML IV SCH (07:30)
[2017-04-12] MEDS ORDERED: CHLORHEXIDINE GLUCONATE 2 % 1 PACK (2 CLOTHS) TOPICAL PRN (07:30)
[2017-04-12] MEDS ORDERED: METOPROLOL TARTRATE 25 MG TAB PO PRN (07:30)
[2017-04-12] MEDS ORDERED: POVIDONE IODINE 5% (ANTISEPSIS KIT) 4 APPLICATIONS EACH NARE PRN (07:30)
[2017-04-12] MEDS ORDERED: LACTATED RINGER'S 1000 ML IV PRN (07:30)
[2017-04-12] MEDS ORDERED: TRANEXAMIC PERI-ARTICULAR 3,000 MG/NS 100 ML P-ARTICULR SCH ×2 (07:30)
[2017-04-12] MEDS ORDERED: CHLORHEXIDINE GLUCONATE 4% SOLN 120 ML BTL TOPICAL SCH (07:30)
[2017-04-12] MEDS ORDERED: POVIDONE IODINE 7.5% SCRUB 118 ML BOTTLE TOPICAL SCH (07:30)
[2017-04-12] MEDS ORDERED: SODIUM CHLORID 0.9% 500 ML IV PRN (07:30)
[2017-04-12] MEDS ORDERED: CELE20TA PO (07:31)
[2017-04-12 07:32] VITALS: BP 142/87; PULSE 59; RESP 16; TEMP 98.2; O2SAT 100
[2017-04-12] MEDS ORDERED: diphenhydrAMINE HCL 50 MG/ML VIAL IV PRN (08:45)
[2017-04-12] MEDS ORDERED: NALOXONE HCL 0.4 MG/ML AMP IV PRN (08:45)
[2017-04-12] MEDS ORDERED: SODIUM CHLORIDE 0.9% FLUSH 5 ML FLUSH IVF PRN (08:45)
[2017-04-12] MEDS ORDERED: Post-op Orders (for Pharmacy) MISC XX ONE (08:45)
[2017-04-12] MEDS ORDERED: GENTAMICIN SULFATE 80 MG/2 ML VIAL ONE (08:58)
[2017-04-12] MEDS ORDERED: MAGNESIUM HYDROXIDE SUSP 30 ML CUP PO PRN (09:00)
[2017-04-12] MEDS: LISINOPRIL 20 MG TAB PO SCH (09:00)
[2017-04-12] MEDS: CITALOPRAM HYDROBROMIDE 20 MG TAB PO SCH (09:00)
[2017-04-12] MEDS: SODIUM CHLORIDE 0.9% FLUSH 5 ML FLUSH IVF SCH ×2 (09:00→21:00)
[2017-04-12] MEDS ORDERED: ZOLPIDEM TARTRATE 5 MG TAB PO PRN (09:00)
[2017-04-12] MEDS ORDERED: ALUMINUM/MAGNESIUM/SIMETH 30 ML CUP PO PRN (09:00)
[2017-04-12] MEDS ORDERED: oxyCODONE/ACETAMINOPHEN 5 MG/325 MG TAB PO PRN (09:00)
[2017-04-12] MEDS: SODIUM CHLOR 0.9% 1000 ML INJ 1,000 ML IV SCH ×2 (09:00→19:00)
[2017-04-12] MEDS ORDERED: ONDANSETRON HCL 4 MG/2 ML VIAL IVP PRN (09:00)
[2017-04-12] MEDS ORDERED: MIDAZOLAM HCL 2 MG/2 ML VIAL ONE (09:33)
[2017-04-12] MEDS ORDERED: ACETAMINOPHEN 1000 MG/100 ML VIAL IV ONE (09:33)
[2017-04-12] MEDS ORDERED: FAMOTIDINE 20 MG/2 ML VIAL ONE (09:34)
[2017-04-12] MEDS: TRANEXAMIC ACID IV SCH ×2 (09:56→13:03)
[2017-04-12] MEDS: SODIUM CHLORIDE 0.9% IV SCH ×2 (09:56→13:03)
[2017-04-12] MEDS ORDERED: ONDANSETRON HCL 4 MG/2 ML VIAL IV PUSH ONE (10:47)
[2017-04-12] MEDS ORDERED: PROPOFOL 200 MG/20 ML AMP IV ONE (10:47)
[2017-04-12] MEDS ORDERED: LACTATED RINGER'S 1000 ML INJ 1,000 ML IV ONE (12:00)
[2017-04-12] MEDS ORDERED: DO NOT ADM ANY ANTICOAGULANT DRUGS PRN (12:24)
[2017-04-12] MEDS ORDERED: *MEPERIDINE 25 MG INJ VIAL PERIprocedural Use ONLY ONE (12:45)
--- NOTE | 2017-04-12 13:30 | RADRPT ---
EXAM DATE/TIME: 04/12/2017 12:25 [facility] COMPARISON: No previous studies available for comparison. EXTERNAL COMPARISON : INDICATIONS : Post-op total left knee arthroplasty. MEDICAL HISTORY : Hypertension. SURGICAL HISTORY : Appendectomy. Total knee replacement, right. ENCOUNTER: Initial ACUITY: 1 day PAIN SCORE: 8/10 LOCATION: Left knee. FINDINGS: Posterior screw features of knee arthroplasty with prosthetic components in anatomic alignment. No ev idence for acute fracture. Soft tissue emphysema and expected postoperative soft tissue changes. CONCLUSION: 1. Status post left knee arthroplasty in normal anatomic alignment without acute fracture. Ramon Gallego MD on April 12, 2017 at 13:25 Board Certified Radiologist. This report was verified electronically.
[2017-04-12] MEDS: oxyCODONE/ACETAMINOPHEN 5 MG/325 MG TAB PO PRN ×2 (14:07→19:48)
[2017-04-12 14:20] VITALS: BP 136/76; PULSE 73; RESP 16; TEMP 95.5; O2SAT 98
--- NOTE | 2017-04-12 14:26 | MP ---
cc: ANATOLIY LUCAS DATE OF SURGERY: 04/12/2017 PREOPERATIVE DIAGNOSIS Left knee osteoarthritis. POSTOPERATIVE DIAGNOSES Left knee osteoarthritis. PROCEDURE Left total knee arthroplasty. SURGEON Dr. Anatoliy Lucas CLINICAL DATA ASSOCIATE Anatoliy Kay PA-C ANESTHESIA General with a femoral nerve block. ESTIMATED BLOOD LOSS 50 cc. COMPLICATIONS None. IMPLANTS USED DePuy Attune size 8 posterior stabilized femoral component, size 8 rotating platform tibial baseplate, size 5 mm tibial insert, size 38 patella. JUSTIFICATION This patient is a 51-year-old male with history of severe osteoarthritis involving the left knee. He has severe disabling pain with standing, walking, ambulation and weightbearing activities and even severe pain at rest. He has failed greater than three months of nonoperative conservative treatment to include medication therapy, injections, ambulatory assisted aids, home exercise program, activity modification and weight loss attempts. X-rays of the left knee revealed severe end-stage osteoarthritis with joint space narrowing, subchondral sclerosis, subchondral cysts, osteophyte formation and varus deformity. The patient was counseled as to the risks, benefits and alternatives to the above-named proposed surgical procedure. The risks were discussed which include but are not limited to anesthesia, bleeding, infection, damage to nerves and blood vessels, pain, stiffness, failure of components, blood clots, pulmonary embolism and even . The patient's pain is severe. He favored the benefits over the risks and did wish to proceed with surgery. PROCEDURE IN DETAIL Written consent was obtained. The patient was identified by name, taken to the operating room and placed supine on the operating table. General anesthesia was administered as well as two grams of IV Ancef and one gram of IV vancomycin. A well-padded tourniquet was placed on the left thigh. The left lower extremity was prepped and draped using isopropyl alcohol, Hibiclens solution and ChloraPrep solution. After a timeout was performed an Esmarch bandage was used to exsanguinate the left lower extremity and the tourniquet inflated to 250 mmHg. A longitudinal incision was made over the anterior aspect of the left knee, A medial parapatellar arthrotomy was performed. The patella was everted. A patella resection guide was used to resect 9 mm of patella. The size 38 mm guide was placed. Three drill holes were placed and the 38 mm patella trial fit well. Attention was turned to the femur where an intramedullary guide danis was placed and distal femoral guide was set to remove 10 mm of distal femur 5 degrees off the anatomic valgus axis alignment. An oscillating saw was used to perform the distal femoral cut. Attention was turned to the tibia where an extramedullary tibial guide was set to remove 5 mm off the lowest portion of the medial tibial plateau. The tibial guide was pinned in place and the tibial cut was performed. A 5 mm spacer block showed full extension. Attention was turned back to the femur where the AP sizing block showed this to measure a size 8. The anterior reference 3 degree external rotation guide was used to pin a size [address] The anterior, posterior and chamfer cuts were performed. A size 8 PCL box guide was pinned in place. The PCL was box cut with an oscillating saw. The medial and lateral meniscus remnants were removed as well as bone and soft tissue debris from the posterior portion of the knee. A size 8 tibia baseplate was pinned in place. The tibia was drilled and punched. Trial components were evaluated and final components cemented in place. With the 5 mm tibial insert the leg could achieve full extension to 0 degrees and flexion to 140. There was no evidence of tibial lift-off. Varus-valgus balance appeared appropriate and symmetric and the patella was noted to track centrally. The tourniquet was deflated. Bovie cautery was used for hemostasis. The knee was thoroughly irrigated with sterile saline pulse lavage antibiotic-impregnated solution. The arthrotomy incision was closed with #1 Vicryl suture, the subcutaneous layer with 2-0 Vicryl suture. The skin was closed with Dermabond. Sterile dressing was applied. The patient tolerated the procedure well with no intraoperative complications noted. Anatoliy Kay, physician assistant family teacher certified, was present during the entire procedure to include patient positioning and the procedure itself. The medical necessity of a physician assistant family teacher was indicated in this case due to the complexity of the procedure. He assisted with appropriate manipulation of the leg and also retraction of muscle, tendon, bone and neurovascular structures. He assisted with both preparation of bone cuts and also implantation of the prosthetic replacement. MD RAMBO Ramírez/FREDERICK /12:03 PM /2:08 PM
--- NOTE | 2017-04-12 14:48 | PD.CONS ---
[facility] By Dr. Doan Reason for Consult Medical management Primary Care Physician Non-Staff Diagnoses: History of Present Illness Written by LESLY Miguel acting as scribe for Dr. Betancourt] on 04/12/17 at 14:25. 51 y/o male with a history of HTN and depression underwent a left total knee replacement on 04/12/[address] Doan. [facility] was consulted for medical management of chronic medical conditions. Patient seen and examined laying in bed, slightly still drowsy from anaesthesia. He is able to answer questions appropriately, denies any pain, nausea or vomiting. Patient's family member is at the bedside as well. Review of Systems Constitutional: DENIES: Fever, Chills Respiratory: DENIES: Cough, Shortness of breath Cardiovascular: DENIES: Chest pain Gastrointestinal: DENIES: Constipation, Diarrhea, Nausea, Vomiting Genitourinary: DENIES: Hematuria, Dysuria Musculoskeletal: DENIES: Joint pain, Back pain, Neck pain Neurologic: DENIES: Headache Past Family Social History Allergies: Coded Allergies: No Known Allergies (Unverified , 11/16/16) Past Medical History HTN Depression Past Surgical History Right knee replacement Right elbow surgery Appendectomy Reported Medications Reported Meds & Active Scripts Active Reported Celexa (Citalopram Hydrobromide) 20 Mg Tab 20 Mg PO DAILY Centrum (Multiple Vitamins W/ Minerals) 1 Chew 1 Tab CHEW DAILY Valtrex (Valacyclovir HCl) 500 Mg Tab 500 Mg PO DAILY PRN Fish Oil (Napoleon-3 Fatty Acids) 500 Mg Cap 2,000 Mg PO DAILY Tramadol (Tramadol HCl) 50 Mg Tab 50 Mg PO Q8H PRN Lisinopril 20 Mg Tab 20 Mg PO DAILY Active Ordered Medications Current Medications Medications (Trade) Dose Ordered Sig/Jessy Route Start Time Stop Time Status Last Admin (Betadine 7.5% Scrub) 1 applic ONCE TOPICAL 04/12/17 07:30 04/15/17 07:29 Chlorhexidine Gluconate 1 applic 1 applic ONCE TOPICAL 04/12/17 07:30 04/15/17 07:29 Tranexamic Acid 1530 mg/Sodium Chloride 115.3 ml @ 200 mls/hr ONCE IV 04/12/17 07:30 04/12/17 17:00 04/12/17 09:56 Ropivacaine 24.63 ml/Ketorolac Tromethamine 30 mg/Epinephrine HCl 0.5 mg/ Clonidine 80 mcg/ Sodium Chloride 100 ml @ 200 mls/hr ONCE P-ARTICULR 04/12/17 07:30 04/12/17 17:00 04/12/17 11:19 (Cyklokapron Inj/ NS Inj) 130 ml @ 260 mls/hr ONCE P-ARTICULR 04/12/17 07:30 04/12/17 17:00 04/12/17 11:19 (CeleXA) 20 mg DAILY PO 04/12/17 09:00 Lisinopril 20 mg 20 mg DAILY PO 04/12/17 09:00 (NS 1000 ml Inj) 1,000 ml @ 100 mls/hr Q10H IV 04/12/17 09:00 04/12/17 09:00 (NS Flush) 2 ml UNSCH PRN IVF 04/12/17 08:45 IV Flush 2 ml 2 ml BID IVF 04/12/17 09:00 (Ancef Inj/NS Inj) 100 ml @ 200 mls/hr Q6H IV 04/12/17 15:00 04/13/17 03:29 04/12/17 14:08 (Lovenox Inj) 40 mg Q24H SQ 04/13/17 12:00 04/22/17 12:01 (Morphine Inj) 3 mg Q3H PRN IV PUSH 04/12/17 09:00 (Percocet 5-325 Mg) 1 tab Q4H PRN PO 04/12/17 09:00 (Percocet 5-325 Mg) 2 tab Q4H PRN PO 04/12/17 09:00 04/12/17 14:07 (Theragran M Tab) 1 tab BID PO 04/13/17 21:00 06/12/17 20:59 (Zofran Inj) 4 mg Q6H PRN IVP 04/12/17 09:00 (Colace) 100 mg BID PO 04/13/17 21:00 (Mag-Al Plus Susp Liq) 30 ml Q6H PRN PO 04/12/17 09:00 (Ambien) 5 mg HS PRN PO 04/12/17 09:00 (Milk Of Magnesia Liq) 30 ml DAILY PRN PO 04/12/17 09:00 04/12/17 14:06 (Narcan Inj) 0.4 mg UNSCH PRN IV 04/12/17 08:45 (Benadryl Inj) 25 mg Q6H PRN IV 04/12/17 08:45 Miscellaneous Information ALL NURSING DEPARTME... UNSCH PRN .XX 04/12/17 12:24 04/13/17 12:23 Family History Family history significant for HTN Social History Patient denies any tobacco, alcohol or illicit drug use. Physical Exam Vital Signs Vital Signs Date Time Temp Pulse Resp B/P Pulse Ox O2 Delivery O2 Flow Rate FiO2 04/12/17 13:15 98.1 79 18 131/70 96 Nasal Cannula 4 04/12/17 13:00 80 18 126/72 90 Nasal Cannula 4 04/12/17 12:45 82 18 126/71 94 Nasal Cannula 4 04/12/17 12:25 98.1 86 18 131/73 96 Nasal Cannula 4 04/12/17 07:32 98.2 59 16 142/87 100 Physical Exam GENERAL: This is a well-nourished, well-developed patient, in no apparent distress. SKIN: No rashes, ecchymoses or lesions. Cool and dry. HEAD: Atraumatic. Normocephalic. No temporal or scalp tenderness. EYES: Pupils equal round and reactive. Extraocular motions intact. ENT: Nose without bleeding, purulent drainage or septal hematoma. Airway patent. NECK: Trachea midline. No JVD or lymphadenopathy. Supple, nontender, no meningeal signs. CARDIOVASCULAR: Regular rate and rhythm without murmurs, gallops, or rubs. RESPIRATORY: Clear to auscultation. Breath sounds equal bilaterally. No wheezes , rales, or rhonchi. GASTROINTESTINAL: Abdomen soft, non-tender, nondistended. No hepato-splenomegaly , or palpable masses. MUSCULOSKELETAL: Extremities without clubbing, cyanosis, or edema. Left knee with edema. No calf tenderness. NEUROLOGICAL: Awake and alert. Motor and sensory grossly within normal limits. Normal speech. Laboratory Laboratory Tests Test 04/12/17 07:24 Blood Type O POSITIVE Antibody Screen NEGATIVE Imaging Last Impressions Knee X-Ray 04/12/17 0898 Signed Impressions: Service Date/Time: Wednesday, April 12, 2017 12:25 - CONCLUSION: 1. Status post left knee arthroplasty in normal anatomic alignment without acute fracture. Ramon Gallego MD Assessment and Plan Problem List: (1) Primary localized osteoarthrosis, lower leg ICD Code: M17.10 Status: Acute (2) HTN (hypertension) ICD Code: I10 Status: Acute Assessment and Plan 51 y/o male with a history of HTN and depression underwent a left total knee replacement on 04/12/[address] Doan. [facility] was consulted for medical management of chronic medical conditions. Osteoarthritis, s/p left total knee replacement on 04/12/17 -Followed by Dr. Doan -Pain management with Percocet PO and IV morphine -PT daily HTN, chronic, currently stable -Cont home medication lisinopril -Monitor vitals, will order prns if needed Depression, chronic -Cont home medication Celexa DVT prophylaxis: Lovenox This note was transcribed by scribe [Winsome Mistry]. I, Dr. Darshan Boone personally performed the history, physical exam, and medical decision making; and confirmed the accuracy of the information in the transcribed note. Authenticated by Dr. Darshan Boone on 04/12/17 at 15:14. Discussed Condition With Patient and patient's family member Winsome Mistry Apr 12, 2017 2:47 pm Darshan Boone MD Apr 12, 2017 3:15 pm
[2017-04-12] MEDS: MORPHINE SULFATE 4 MG/ML INJ IV PUSH PRN ×2 (15:27→21:16)
[2017-04-12 16:00] VITALS: BP 130/74; PULSE 67; RESP 18; TEMP 95.9; O2SAT 100
[2017-04-12 20:40] VITALS: BP 130/74; PULSE 78; RESP 18; TEMP 96.9; O2SAT 100
[2017-04-13 00:18] VITALS: BP 110/67; PULSE 79; RESP 18; TEMP 97.5; O2SAT 98
[2017-04-13] MEDS: SODIUM CHLOR 0.9% 1000 ML INJ 1,000 ML IV SCH ×2 (02:51→09:32)
[2017-04-13] MEDS: oxyCODONE/ACETAMINOPHEN 5 MG/325 MG TAB PO PRN ×4 (02:56→15:54)
[2017-04-13 04:50] VITALS: BP 120/72; PULSE 72; RESP 18; TEMP 97.3; O2SAT 100
[2017-04-13] MEDS: MORPHINE SULFATE 4 MG/ML INJ IV PUSH PRN ×3 (05:12→15:53)
[2017-04-13 06:18] LABS: HEMATOCRIT 39.2 % (39.0-51.0); MEAN CELL VOLUME 86.6 FL (80.0-100.0); MEAN CORPUSCULAR HEMOGLOBIN 28.7 PG (27.0-34.0); MEAN CORPUSCULAR HGB CONC 33.1 % (32.0-36.0); PLATELET COUNT 142 TH/MM3 (150-450); RED BLOOD COUNT 4.52 MIL/MM3 (4.50-5.90); RED CELL DISTRIBUTION WIDTH 13.9 % (11.6-17.2); REVIEW FLAG FINAL; WHITE BLOOD COUNT 12.9 TH/MM3 (4.0-11.0)
[2017-04-13 06:39] LABS: BICARBONATE 26.8 MEQ/L (21.0-32.0); POTASSIUM 4.1 MEQ/L (3.5-5.1)
[2017-04-13 08:00] VITALS: BP 148/78; PULSE 68; RESP 18; TEMP 96.8; O2SAT 100
--- NOTE | 2017-04-13 08:23 | PD.ORT.PN ---
Subjective Post Op Day #: 1 Subjective Remarks pain tolerable. Objective Vitals Vital Signs Date Time Temp Pulse Resp B/P Pulse Ox O2 Delivery O2 Flow Rate FiO2 04/13/17 04:50 97.3 72 18 120/72 100 04/13/17 00:18 97.5 79 18 110/67 98 04/12/17 20:40 96.9 78 18 130/74 100 04/12/17 16:00 95.9 67 18 130/74 100 04/12/17 14:20 95.5 73 16 136/76 98 04/12/17 13:15 98.1 79 18 131/70 96 Nasal Cannula 4 04/12/17 13:00 80 18 126/72 90 Nasal Cannula 4 04/12/17 12:45 82 18 126/71 94 Nasal Cannula 4 04/12/17 12:25 98.1 86 18 131/73 96 Nasal Cannula 4 I/O 04/12/17 04/12/17 04/12/17 04/13/17 04/13/17 04/13/17 07:00 15:00 23:00 07:00 15:00 23:00 Intake Total 1300 ml 360 ml 240 ml Output Total 550 ml 800 ml Balance 750 ml -440 ml 240 ml Intake Oral 360 ml 240 ml Other 1300 ml Output Urine Total 350 ml 800 ml Estimated Blood Loss 200 ml # Voids 1 2 # Bowel Movements 0 0 Result Diagram: 04/13/17 0518 04/13/17 0518 Imaging Last 24 hours Impressions Knee X-Ray 04/12/17 0833 Signed Impressions: Service Date/Time: Wednesday, April 12, 2017 12:25 - CONCLUSION: 1. Status post left knee arthroplasty in normal anatomic alignment without acute fracture. Ramon Gallego MD Objective Remarks in bed, nad incision no erythema, no drainage neg homans nvi Assessment & Plan Ortho Post Op Day #: 1 Problem List: Assessment and Plan s/p L TKA wbat daily dressing changes lovenox d/c planning home with [facility] and pt - cleared today if pain under control rx in chart f/up dr. mendoza 2 weeks Jonathan Kay Apr 13, 2017 08:22
--- NOTE | 2017-04-13 08:24 | HHI.DCPOC ---
Discharge Care Plan Diagnosis: (1) Primary localized osteoarthrosis, lower leg Your Health Problems Are: Difficulty with ADL Goals to Promote Your Health * To prevent worsening of your condition and complications * To maintain your health at the optimal level Directions to Meet Your Goals Take your medications as prescribed Follow your dietary instruction Follow activity as directed Keep your appointments as scheduled Take your immunizations and boosters as scheduled If your symptoms worsen call your PCP, if no PCP go to Urgent Care Center or Emergency Room Smoking is Dangerous to Your Health. Avoid second hand smoke Call the 24-hour hour crisis hotline for domestic abuse at Jonathan Kay Apr 13, 2017 08:24
--- NOTE | 2017-04-13 08:25 | HHI.FF ---
Face to Face Verification Diagnosis: (1) Primary localized osteoarthrosis, lower leg Physical Therapy Gait training, Safety evaluation, Transfer training, bed to chair Knee: Total knee, Protocol: Left, Full weight bearing Left LE Weight Bearing: WB as tolerated Nursing RN: 3 days/week x 2 weeks Nursing: Moses teaching, Dressing changes Dressing Changes: Daily dressing change I have seen patient Manuel Callahan on 04/13/17. My clinical findings support the need for the requested home health care services because: Limited ability to care for self High risk of falls I certify that my clinical findings support that this patient is homebound because: Post-op weakness Unsteady gait/balance Jonathan Kay Apr 13, 2017 08:25
[2017-04-13] MEDS: CITALOPRAM HYDROBROMIDE 20 MG TAB PO SCH (09:00)
[2017-04-13] MEDS: SODIUM CHLORIDE 0.9% FLUSH 5 ML FLUSH IVF SCH (09:00)
[2017-04-13] MEDS: LISINOPRIL 20 MG TAB PO SCH (09:30)
--- NOTE | 2017-04-13 10:03 | HHI.PR ---
Subjective Remarks Follow up left knee replacement POD #2. Patient sitting in bed doing PT with therapist. Denies any chest pain, or sob. States he is feeling good, no pain, and the pain medication is helping. Objective Vitals Vital Signs Date Time Temp Pulse Resp B/P Pulse Ox O2 Delivery O2 Flow Rate FiO2 04/13/17 08:00 96.8 68 18 148/78 100 04/13/17 04:50 97.3 72 18 120/72 100 04/13/17 00:18 97.5 79 18 110/67 98 04/12/17 20:40 96.9 78 18 130/74 100 04/12/17 16:00 95.9 67 18 130/74 100 04/12/17 14:20 95.5 73 16 136/76 98 04/12/17 13:15 98.1 79 18 131/70 96 Nasal Cannula 4 04/12/17 13:00 80 18 126/72 90 Nasal Cannula 4 04/12/17 12:45 82 18 126/71 94 Nasal Cannula 4 04/12/17 12:25 98.1 86 18 131/73 96 Nasal Cannula 4 I/O 04/12/17 04/12/17 04/12/17 04/13/17 04/13/17 04/13/17 07:00 15:00 23:00 07:00 15:00 23:00 Intake Total 1300 ml 360 ml 240 ml Output Total 550 ml 800 ml Balance 750 ml -440 ml 240 ml Intake Oral 360 ml 240 ml Other 1300 ml Output Urine Total 350 ml 800 ml Estimated Blood Loss 200 ml # Voids 1 2 # Bowel Movements 0 0 Result Diagram: 04/13/17 0518 04/13/17 0518 Imaging Last Impressions Knee X-Ray 04/12/17 0833 Signed Impressions: Service Date/Time: Wednesday, April 12, 2017 12:25 - CONCLUSION: 1. Status post left knee arthroplasty in normal anatomic alignment without acute fracture. Ramon Gallego MD Objective Remarks GENERAL: In NAD SKIN: Warm and dry. Left knee [place] dry and intact HEAD: Atraumatic. Normocephalic. NECK: Trachea midline. No JVD. CARDIOVASCULAR: Regular rate and rhythm. RESPIRATORY: No accessory muscle use. Clear to auscultation. Breath sounds equal bilaterally. GASTROINTESTINAL: Abdomen soft, non-tender, nondistended. Hepatic and splenic margins not palpable. MUSCULOSKELETAL: Mild left knee swelling No obvious deformities. NEUROLOGICAL: Awake and alert. No obvious cranial nerve deficits. Motor grossly within normal limits. Normal speech. PSYCHIATRIC: Appropriate mood and affect; insight and judgment normal. Medications and IVs Current Medications Medications (Trade) Dose Ordered Sig/Jessy Route Start Time Stop Time Status Last Admin (Betadine 7.5% Scrub) 1 applic ONCE TOPICAL 04/12/17 07:30 04/15/17 07:29 (Hibiclens 4% Top Soln) 1 applic ONCE TOPICAL 04/12/17 07:30 04/15/17 07:29 (CeleXA) 20 mg DAILY PO 04/12/17 09:00 Lisinopril 20 mg 20 mg DAILY PO 04/12/17 09:00 04/13/17 09:30 (NS 1000 ml Inj) 1,000 ml @ 100 mls/hr Q10H IV 04/12/17 09:00 04/13/17 02:51 (NS Flush) 2 ml UNSCH PRN IVF 04/12/17 08:45 04/12/17 15:27 (NS Flush) 2 ml BID IVF 04/12/17 09:00 04/13/17 09:00 (Lovenox Inj) 40 mg Q24H SQ 04/13/17 12:00 04/22/17 12:01 (Morphine Inj) 3 mg Q3H PRN IV PUSH 04/12/17 09:00 04/13/17 09:38 (Percocet 5-325 Mg) 1 tab Q4H PRN PO 04/12/17 09:00 (Percocet 5-325 Mg) 2 tab Q4H PRN PO 04/12/17 09:00 04/13/17 08:10 (Theragran M Tab) 1 tab BID PO 04/13/17 21:00 06/12/17 20:59 (Zofran Inj) 4 mg Q6H PRN IVP 04/12/17 09:00 (Colace) 100 mg BID PO 04/13/17 21:00 (Mag-Al Plus Susp Liq) 30 ml Q6H PRN PO 04/12/17 09:00 (Ambien) 5 mg HS PRN PO 04/12/17 09:00 (Milk Of Magnesia Liq) 30 ml DAILY PRN PO 04/12/17 09:00 04/12/17 14:06 (Narcan Inj) 0.4 mg UNSCH PRN IV 04/12/17 08:45 (Benadryl Inj) 25 mg Q6H PRN IV 04/12/17 08:45 Miscellaneous Information ALL NURSING DEPARTME... UNSCH PRN .XX 04/12/17 12:24 04/13/17 12:23 A/P Problem List: (1) Primary localized osteoarthrosis, lower leg ICD Code: M17.10 Status: Acute (2) HTN (hypertension) ICD Code: I10 Status: Acute Assessment and Plan 51 y/o male with a history of HTN and depression underwent a left total knee replacement on 04/12/[address] Doan. [facility] was consulted for medical management of chronic medical conditions. Osteoarthritis, s/p left total knee replacement on 04/12/17 -Followed by Dr. Doan -Pain management with Percocet PO and IV morphine -PT daily HTN, chronic, currently stable -Cont home medication lisinopril -Monitor vitals, will order prns if needed Depression, chronic -Cont home medication Celexa DVT prophylaxis: Lovenox Discharge Planning Possible later today Winsome Mistry Apr 13, 2017 10:03
[2017-04-13 12:00] VITALS: BP 139/77; PULSE 65; RESP 18; TEMP 96.1; O2SAT 100
[2017-04-13] MEDS ORDERED: ENOXAPARIN SODIUM 40 MG/0.4 ML SYRINGE SQ SCH (12:00)
[2017-04-13] MEDS ORDERED: DOCUSATE SODIUM 100 MG CAP PO SCH (21:00)
[2017-04-13] MEDS ORDERED: MULTIVITAMINS/MINERALS THERAPEUTIC TAB PO SCH (21:00)
--- NOTE | 2017-04-19 11:40 | MD ---
cc: ANATOLIY LUCAS ADMISSION DATE: 04/12/2017 DISCHARGE DATE: 04/13/2017 ADMISSION DIAGNOSIS Severe degenerative osteoarthritis, left knee. DISCHARGE DIAGNOSIS Severe degenerative osteoarthritis, left knee. HISTORY OF PRESENT ILLNESS Mr. Callahan is a 51-year-old male who presented to the orthopedic clinic of [place] for evaluation by Dr. Anatoliy Lucas regarding his progressive and severe left knee pain. The patient states the pain has been bothering him for greater than 1 year duration for which he has received treatment for this ailment. He notes his pain is progressive and severe aching sensation which is aggravated by weightbearing activities. He has no alleviating factors at this point in time, although in the past he has tried medications, bracing, physical therapy, multiple injections without long-lasting relief of symptoms. He does have a history of a right total knee arthroplasty with good success. The patient has x-ray evidence of severe degenerative osteoarthritis of the left knee. While in the office the patient was counseled on his diagnosis and treatment options, risks, benefits, indications were all discussed in great detail. The patient did elect to proceed with surgical intervention to include a left total knee arthroplasty. DATE OF SURGERY: 04/12/2017, left total knee arthroplasty. POSTOP After surgery the patient was admitted to [facility] where he received appropriate medical management, pain control, DVT prophylaxis as well as physical therapy. DISCHARGE Once being discharged from the hospital the patient is cleared to go home where he will receive home health care and home physical therapy. He is in stable condition. He may weight-bear as tolerated. Patient is to receive daily dressing changes and has been instructed on appropriate wound care management. He has been provided prescriptions for pain control as well as DVT prophylaxis medication. He has also been provided a follow-up appointment to see Dr. Anatoliy Lucas in the office approximately 2 weeks from date of surgery. The patient has asked appropriate questions which have been answered. The patient has been discharged. Anatoliy Lucas MD Dictated by: BRIE Pro/TLL /7:55 AM /11:34 AM
== END 2017-04-13 16:39 | disposition home health service (06) | DRG 470 ==
LOC: HSDI 04-12 06:59 → N06A 04-12 13:27
PROVIDERS: ADMIT Orthopaedic Surgery Sports Medicine; ATTEND Orthopaedic Surgery Sports Medicine
PROC: 3E0T3BZ Introduction of Anesthetic Agent into Peripheral Nerves and Plexi, Percutaneous Approach (ICD-10-PCS; 2017-04-12)
PROC: 0SRD0J9 Replacement of Left Knee Joint with Synthetic Substitute, Cemented, Open Approach (ICD-10-PCS; principal; 2017-04-12 09:58)
DX: M17.12 Unilateral primary osteoarthritis, left knee (principal); I10 Essential (primary) hypertension; G56.91 Unspecified mononeuropathy of right upper limb; F32.9 Major depressive disorder, single episode, unspecified; Z96.651 Presence of right artificial knee joint
CPT/HCPCS: 73560; 80048; 85027; 86850; 86900; 86901; 94150; C1776; J0131; J0171; J0690; J0735; J1100; J1580; J1650; J1885; J2175; J2250; J2270; J2405; J2795; J3010; J3370; J7030; J7050; J7120; L1830

== ENCOUNTER → 2017-03-24 | Outpatient (CLI) | payer OTHER ==
[~2017-03-24] MED LIST changes: +CELE20TA PO; +CENTCHW4 CHEW; +MISC-163; +MULT-6 PO
--- NOTE | 2017-03-24 09:58 | RADRPT ---
EXAM DATE/TIME: 03/24/2017 09:44 [facility] COMPARISON: CHEST PA & LAT, October 30, 2016, 12:24. INDICATIONS : Evaluate for pneumonia, pneumothorax, or communicable disease. Pre op knee surgery. MEDICAL HISTORY : None. SURGICAL HISTORY : None. ENCOUNTER: Initial ACUITY: 1 day PAIN SCORE: 0/10 LOCATION: Bilateral chest FINDINGS: PA and lateral views of the chest demonstrate the lungs to be symmetrically aerated without evidence of mass, infiltrate or effusion. The cardiomediastinal contours are unremarkable. Osseous structure s are intact. CONCLUSION: Normal examination. Diego Lopez MD on March 24, 2017 at 9:56 Board Certified Radiologist. This report was verified electronically.
--- NOTE | 2017-03-24 19:23 | EKG ---
Date Performed: 03/24/2017 Time Performed: 09:30:45 PTAGE: 51 years EKG: Sinus rhythm NORMAL ECG PREVIOUS TRACING : 10/30/2016 11.43 Compared to prior tracing no significant change DOCTOR: Abelino Barrera Interpretating Date/Time 03/24/2017 19:21:44
== END ==
LOC: HCAV 09:15
PROVIDERS: ATTEND Orthopaedic Surgery Sports Medicine
DX: Z01.810 Encounter for preprocedural cardiovascular examination (principal); Z01.812 Encounter for preprocedural laboratory examination; Z01.811 Encounter for preprocedural respiratory examination
CPT/HCPCS: 71020; 93005

== ENCOUNTER 2017-05-11 09:28 | Inpatient (IN) | payer OTHER, MEDICARE ==
[~2017-05-11] VITALS: Ht 175.3 cm; Wt 101.1 kg
[~2017-05-11 09:28] MED LIST changes: -APIX2.5T PO; -CPMMACHINE; -FISH500C PO; -HYDR-3288 PO; -MISC-163; -MULT-6 PO; -WALKER WHEELS/F1 MIS
[2017-05-11] MEDS ORDERED: PERC5TAB12 PO (14:10)
[2017-05-11] MEDS ORDERED: FISHCAP4 PO (14:10)
[2017-05-12] MEDS ORDERED: LACTATED RINGER'S 1000 ML INJ 1,000 ML IV ONE (12:00)
[2017-05-12] MEDS ORDERED: PROPOFOL 200 MG/20 ML AMP IV ONE (12:00)
[2017-05-12] MEDS ORDERED: ONDANSETRON HCL 4 MG/2 ML VIAL IV PUSH ONE (12:00)
[2017-05-12 15:00] VITALS: BP 142/87; PULSE 76; RESP 18; TEMP 98.4; O2SAT 100
[2017-05-12] MEDS ORDERED: SODIUM CHLORID 0.9% 500 ML IV PRN (16:00)
[2017-05-12] MEDS ORDERED: ceFAZolin 2 GM PREMIX 50 ML IV SCH (16:00)
[2017-05-12] MEDS ORDERED: POVIDONE IODINE 7.5% SCRUB 118 ML BOTTLE TOPICAL SCH (16:00)
[2017-05-12] MEDS ORDERED: INSULIN HUMAN REGULAR 1,000 UNITS/10 ML VIAL SQ PRN (16:00)
[2017-05-12] MEDS ORDERED: CHLORHEXIDINE GLUCONATE 4% SOLN 120 ML BTL TOPICAL SCH (16:00)
[2017-05-12] MEDS ORDERED: METOPROLOL TARTRATE 25 MG TAB PO PRN (16:00)
[2017-05-12] MEDS ORDERED: LACTATED RINGER'S 1000 ML IV PRN (16:00)
[2017-05-12] MEDS ORDERED: POVIDONE IODINE 5% (ANTISEPSIS KIT) 4 APPLICATIONS EACH NARE PRN (16:00)
[2017-05-12] MEDS ORDERED: CHLORHEXIDINE GLUCONATE 2 % 1 PACK (2 CLOTHS) TOPICAL PRN (16:00)
[2017-05-12] MEDS ORDERED: MIDAZOLAM HCL 2 MG/2 ML VIAL ONE (18:04)
[2017-05-12] MEDS ORDERED: ASPI81CH37 CHEW (18:08)
[2017-05-12] MEDS ORDERED: PERC10TA27 PO (18:08)
[2017-05-12] MEDS ORDERED: GENTAMICIN SULFATE 80 MG/2 ML VIAL ONE (18:11)
[2017-05-12] MEDS ORDERED: ONDANSETRON HCL 4 MG/2 ML VIAL IVP PRN (18:15)
[2017-05-12] MEDS ORDERED: diphenhydrAMINE HCL 50 MG/ML VIAL IV PRN (18:15)
[2017-05-12] MEDS ORDERED: oxyCODONE/ACETAMINOPHEN 5 MG/325 MG TAB PO PRN (18:15)
[2017-05-12] MEDS ORDERED: BISACODYL 10 MG SUPP RECTAL PRN (18:15)
[2017-05-12] MEDS ORDERED: NALOXONE HCL 0.4 MG/ML AMP IV PRN (18:15)
[2017-05-12] MEDS ORDERED: SODIUM CHLORIDE 0.9% FLUSH 10 ML FLUSH IV FLUSH PRN (18:15)
[2017-05-12] MEDS ORDERED: VANCOMYCIN HCL 1000 MG VIAL ONE (18:21)
[2017-05-12] MEDS ORDERED: VANCOMYCIN HCL 1000 MG VIAL OTHER ONE (18:29)
[2017-05-12] MEDS ORDERED: Post-op Orders (for Pharmacy) MISC XX ONE (19:57)
[2017-05-12] MEDS ORDERED: fentaNYL CITRATE 250 MCG/5 ML AMP ONE (20:07)
[2017-05-12] MEDS ORDERED: *morphine SULFATE 8 MG/ML PERIprocedure ONLY ONE ×2 (20:13→20:30)
[2017-05-12] MEDS ORDERED: *MEPERIDINE 25 MG INJ VIAL PERIprocedural Use ONLY ONE (20:13)
[2017-05-12] MEDS: SODIUM CHLOR 0.9% 1000 ML INJ 1,000 ML IV SCH (20:35)
[2017-05-12] MEDS: SODIUM CHLORIDE 0.9% FLUSH 10 ML FLUSH IV FLUSH SCH (20:45)
--- NOTE | 2017-05-12 20:57 | RADRPT ---
EXAM DATE/TIME: 05/12/2017 20:12 [facility] COMPARISON: KNEE LEFT LTD (1 OR 2VWS), April 12, 2017, 12:25. INDICATIONS : Post op left knee replacement MEDICAL HISTORY : None. SURGICAL HISTORY : None. ENCOUNTER: Initial ACUITY: 1 day PAIN SCORE: 10/10 LOCATION: Left knee FINDINGS: AP and lateral views of the knee following arthroplasty reveals a prosthesis in anatomic alignment. F racture is not appreciated. CONCLUSION: Status post total knee arthroplasty. Víctor Tran MD FACR Board Certified Radiologist. This report was verified electronically.
[2017-05-12] MEDS ORDERED: DO NOT ADM ANY ANTICOAGULANT DRUGS PRN (21:00)
[2017-05-12] MEDS: MORPHINE SULFATE 8 MG/ML INJ IV PUSH PRN (21:16)
[2017-05-12] MEDS: ZOLPIDEM TARTRATE 5 MG TAB PO PRN (21:17)
[2017-05-12 21:39] VITALS: BP 129/78; PULSE 77; RESP 22; TEMP 97.4; O2SAT 97
[2017-05-12 22:13] VITALS: O2SAT 97
[2017-05-12] MEDS: oxyCODONE/ACETAMINOPHEN 5 MG/325 MG TAB PO PRN (23:17)
[2017-05-13] VITALS (8 sets, daily range): BP systolic 123–134; BP diastolic 66–83; PULSE 65–84; RESP 18–20; TEMP 95.9–97.8; O2SAT 97–100
[2017-05-13] MEDS: MORPHINE SULFATE 8 MG/ML INJ IV PUSH PRN ×6 (02:25→21:01)
--- NOTE | 2017-05-13 04:48 | PD.CONS ---
HPI [facility] Consult Requested By Dr. Doan . Reason for Consult medical management of hypertension . Primary Care Physician Ashkan Cannon MD Diagnoses: (1) Postoperative infection of knee (2) HTN (hypertension) History of Present Illness Written by Eva Conley, acting as scribe for Dr. Lima on 05/13/17 at 04:30. Mr. Callahan is a 51 year old male with a history of hypertension, osteoarthritis, and depression who underwent left knee replacement on 04/12/17 with subsequent left knee irrigation and debridement, tibial polyethylene component exchange on 05/12/[address] Doan. Following surgery, patient noted the wound itched. He had Bactrim and another antibiotic (doesn't recall name of) and was on them until yesterday. The leg was hot and painful with erythema and exudate from surgical incision over the past couple of weeks and this did not improve with outpatient antibiotics. The patient reports nausea with no vomiting. Denies diarrhea, bloody or black stools, hematuria, or dysuria, fevers, or chills. . Review of Systems Except as stated in HPI: all other systems reviewed are Neg Past Family Social History Allergies: Coded Allergies: No Known Allergies (Unverified , 05/12/17) Past Medical History Hypertension Depression Osteoarthritis . Past Surgical History Right knee replacement 11/16/[address] Doan Left knee replacement 04/12/[address] Doan Right elbow surgery x 4 Appendectomy Tonsillectomy . Reported Medications Reported Meds & Active Scripts Active Aspirin Low Dose (Aspirin) 81 Mg Chew 81 Mg CHEW DAILY Percocet (Oxycodone-Acetaminophen) 10-325 mg Tab 1 Tab PO Q4H PRN Reported Fish Oil + D3 (Fish Oil-Cholecalciferol) 1,200-1,000 Mg-Unit Cap 1 Cap PO DAILY Percocet (Oxycodone-Acetaminophen) 5-325 mg Tab 1 Tab PO Q4H PRN Celexa (Citalopram Hydrobromide) 20 Mg Tab 20 Mg PO DAILY Centrum (Multiple Vitamins W/ Minerals) 1 Chew 1 Tab CHEW DAILY Valtrex (Valacyclovir HCl) 500 Mg Tab 500 Mg PO DAILY PRN Tramadol (Tramadol HCl) 50 Mg Tab 50 Mg PO Q8H PRN Lisinopril 20 Mg Tab 20 Mg PO DAILY . Active Ordered Medications Current Medications Lactated Ringer's 1,000 ml @ 30 mls/hr Q24H PRN IV SEE LABEL COMMENTS; Start at 16:00; Stop 05/15/17 at 15:59 Sodium Chloride (NS 500 ml Inj) 500 ml @ 30 mls/hr [id number] PRN IV SEE LABEL COMMENTS; Start 05/12/17 at 16:00; Stop 05/15/17 at 15:59 Metoprolol Tartrate (Lopressor) 25 mg SKI LIFT MECHANIC PRN PO SEE LABEL COMMENTS; Start 05/12/17 at 16:00; Stop 05/15/17 at 15:59 Povidone Iodine (Betadine 5% Antisepsis Kit) 1 applic SKI LIFT MECHANIC PRN EACH NARE SEE LABEL COMMENTS; Start 05/12/17 at 16:00; Stop 05/15/17 at 15:59 Chlorhexidine Gluconate (Chlorhexidine 2% Cloth) 3 pack SKI LIFT MECHANIC PRN TOPICAL SEE LABEL COMMENTS; Start 05/12/17 at 16:00; Stop 05/15/17 at 15:59 Insulin Human Regular (NovoLIN R INJ) See Protocol Table ... SKI LIFT MECHANIC PRN SQ SEE PROTOCOL TABLE; Start 05/12/17 at 16:00; Stop 05/15/17 at 15:59 Povidone Iodine (Betadine 7.5% Scrub) 1 applic ONCE TOPICAL ; Start 05/12/17 at 16:00; Stop 05/15/17 at 15:59 Chlorhexidine Gluconate 1 applic 1 applic ONCE TOPICAL ; Start 05/12/17 at 16:00 ; Stop 05/15/17 at 15:59 Cefazolin Sodium/ Dextrose (Ancef 2 Gm Premix) 50 ml @ 100 mls/hr SKI LIFT MECHANIC IV ; Start 05/12/17 at 16:00; Stop 05/15/17 at 15:59 Citalopram Hydrobromide (CeleXA) 20 mg DAILY PO ; Start 05/13/17 at 09:00 Lisinopril 20 mg 20 mg DAILY PO ; Start 05/13/17 at 09:00 Sodium Chloride (NS 1000 ml Inj) 1,000 ml @ 100 mls/hr Q10H IV Last administered on 05/12/17t 20:35; Start 05/12/17 at 21:00 Sodium Chloride (NS Flush) 2 ml UNSCH PRN IV FLUSH FLUSH AFTER USING IV ACCESS ; Start 05/12/17 at 18:15 Sodium Chloride (NS Flush) 2 ml BID IV FLUSH ; Start 05/12/17 at 21:00 Miscellaneous Information (Post-op Orders (for Pharmacy)) STAT ONCE XX ; Start 05/12/17 at 19:57; Stop 05/12/17 at 20:43; Status DC Morphine Sulfate (Morphine Inj) 3 mg Q3H PRN IV PUSH Pain >7 when off MACHINE ADJUSTER LEADER Last administered on 05/13/17 02:25; Start 05/12/17 at 18:15 Oxycodone/ Acetaminophen (Percocet 5-325 Mg) 1 tab Q4H PRN PO PAIN LESS THAN 5 ON SCALE; Start 05/12/17 at 18:15 Oxycodone/ Acetaminophen (Percocet 5-325 Mg) 2 tab Q4H PRN PO PAIN SCALE 5 TO 10 Last administered on 05/12/17 23:17; Start 05/12/17 at 18:15 Multivitamins/ Minerals Therapeutic (Theragran M Tab) 1 tab BID PO ; Start 05/13 at 21:00; Stop 07/12/17 at 20:59 Ondansetron HCl (Zofran Inj) 4 mg Q6H PRN IVP NAUSEA OR VOMITING Last administered on 05/12/17 23:17; Start 05/12/17 at 18:15 Docusate Sodium (Colace) 100 mg BID PO ; Start 05/13/17 at 21:00 Zolpidem Tartrate (Ambien) 5 mg HS PRN PO SLEEP Last administered on 05/12/17 21:17; Start 05/12/17 at 18:15 Bisacodyl (Dulcolax Supp) 10 mg DAILY PRN RECTAL CONSTIPATION; Start 05/12/17 at 18:15 Naloxone HCl (Narcan Inj) 0.4 mg UNSCH PRN IV RESPIRATORY RATE LESS THAN 10; Start 05/12/17 at 18:15 Diphenhydramine HCl (Benadryl Inj) 25 mg Q6H PRN IV ITCHING; Start 05/12/17 at 18:15 Midazolam HCl 2 mg 2 mg STK-MED ONCE .ROUTE ; Start 05/12/17 at 18:04; Stop 10/17 at 18:05; Status DC Vancomycin HCl/ Sodium Chloride (Vancomycin Inj/ NS 250 ml Inj) 250 ml @ 250 mls/hr Q12H IV ; Start 05/13/17 at 06:00 Aspirin (Ecotrin Ec) 81 mg DAILY PO ; Start 05/13/17 at 09:00 Gentamicin Sulfate (Gentamicin Inj) 240 mg STK-MED ONCE .ROUTE Last administered on 05/12/17 18:38; Start 05/12/17 at 18:11; Stop 05/12/17 at 18:12 ; Status DC Vancomycin HCl (Vancomycin Inj) 1,000 mg STK-MED ONCE .ROUTE ; Start 05/12/17 at 18:21; Stop 05/12/17 at 18:22; Status DC Vancomycin HCl (Vancomycin Inj) 1,000 mg STK-MED ONCE OTHER Last administered on 05/12/17 18:29; Start 05/12/17 at 18:29; Stop 05/12/17 at 18:52; Status DC Fentanyl Citrate (fentaNYL INJ) 500 mcg STK-MED ONCE .ROUTE ; Start 05/12/17 at 20:07; Stop 05/12/17 at 20:08; Status DC Morphine Sulfate (*morphine INJ PERIprocedure ONLY) 8 mg STK-MED ONCE .ROUTE Last administered on 05/12/17 20:21; Start 05/12/17 at 20:13; Stop 05/12/17 at 20:14; Status DC Meperidine HCl (*DEMEROL INJ PERIprocedural ONLY) 25 mg STK-MED ONCE .ROUTE Last administered on 05/12/17 20:13; Start 05/12/17 at 20:13; Stop 05/12/17 at 20:14; Status DC Morphine Sulfate (*morphine INJ PERIprocedure ONLY) 8 mg STK-MED ONCE .ROUTE Last administered on 05/12/17 20:31; Start 05/12/17 at 20:30; Stop 05/12/17 at 20:31; Status DC Miscellaneous Information ALL NURSING DEPARTME... UNSCH PRN .XX SEE LABEL COMMENTS; Start 05/12/17 at 21:00; Stop 05/13/17 at 20:59 . Family History Maternal grandmother with diabetes Father with Parkinson's disease with prostate cancer . Social History Tobacco: denies ever smoking Alcohol: none in over 3 months Illicit Drugs: denies . Physical Exam Vital Signs Vital Signs Date Time Temp Pulse Resp B/P Pulse Ox O2 Delivery O2 Flow Rate FiO2 05/13/17 00:17 18 05/13/17 00:00 96.9 76 20 134/80 97 05/12/17 22:13 97 Nasal Cannula 3.00 05/12/17 21:39 97.4 77 22 129/78 97 05/12/17 21:21 18 05/12/17 21:21 18 05/12/17 20:55 98.6 83 19 144/84 98 Nasal Cannula 3 05/12/17 20:45 83 22 146/78 97 Nasal Cannula 3 05/12/17 20:30 89 28 134/70 97 Nasal Cannula 3 05/12/17 20:15 93 23 143/83 99 Nasal Cannula 3 05/12/17 20:05 97 17 143/77 95 Nasal Cannula 3 05/12/17 20:01 98.3 97 18 137/73 98 Nasal Cannula 3 05/12/17 15:00 98.4 76 18 142/87 100 Physical Exam GENERAL: This is a well-nourished, well-developed patient, in no apparent distress. SKIN: No rashes, ecchymoses or lesions. Cool and dry. HEAD: Atraumatic. Normocephalic. EYES: No scleral icterus. No injection or drainage. ENT: Nose without bleeding, purulent drainage. NECK: Trachea midline. No JVD or lymphadenopathy. CARDIOVASCULAR: Regular rate and rhythm without murmurs, gallops, or rubs. RESPIRATORY: Clear to auscultation. Breath sounds equal bilaterally. No wheezes , rales, or rhonchi. GASTROINTESTINAL: Abdomen soft, non-tender, nondistended. No guarding. MUSCULOSKELETAL: Extremities without clubbing, cyanosis. No calf tenderness. Left knee splinted/immobilized with intact distal sensation and pulses. NEUROLOGICAL: Awake and alert. Motor and sensory grossly within normal limits. Normal speech. . Laboratory Laboratory Tests Test 05/12/17 15:25 Blood Type O POSITIVE Antibody Screen NEGATIVE Date/Time Procedure Status Source Growth 05/12/17 18:23 Gram Stain Received Fluid Other Pending 05/12/17 18:23 Body Fluid Culture Received Fluid Other Pending 05/12/17 18:23 Fungal Smear Received Fluid Other Pending 05/12/17 18:23 Fungal Culture Received Fluid Other Pending 05/12/17 18:23 Acid Fast Stain Received Fluid Other Pending 05/12/17 18:23 Mycobacterial Culture Received Fluid Other Pending Imaging Last Impressions Knee X-Ray 05/12/17 1801 Signed Impressions: Service Date/Time: Wednesday, May 12, 2017 20:12 - CONCLUSION: Status post total knee arthroplasty. Víctor Tran MD . Assessment and Plan Problem List: (1) Postoperative infection of knee ICD Code: T81.4XXA Status: Acute (2) HTN (hypertension) ICD Code: I10 Status: Acute Assessment and Plan Mr. Callahan is a 51 year old male with a history of hypertension, osteoarthritis, and depression who underwent left knee replacement on 04/12/17 with subsequent left knee irrigation and debridement, tibial polyethylene component exchange on 05/12/[address] Doan. Left knee infection post op - I and D by Dr. Doan - IV vancomycin per orthopedics - Pain management per ortho Hypertension - continue home antihypertensive medications - monitor trends in blood pressure readings and adjust treatment as indicated - consider PRN Vasotec 1.25 mg q6h IV if needed Depression - continue home antidepressant medications DVT prophylaxis - per orthopedic surgery Discussed Condition With patient and RN . Eva Conley May 13, 2017 04:48
[2017-05-13] MEDS: oxyCODONE/ACETAMINOPHEN 5 MG/325 MG TAB PO PRN ×2 (05:11→10:38)
[2017-05-13] MEDS: VANCOMYCIN INJ 1,000 MG in SODIUM CHLOR 0.9% 250 ML INJ 250 ML IV SCH ×2 (05:11→16:45)
[2017-05-13] MEDS: SODIUM CHLOR 0.9% 1000 ML INJ 1,000 ML IV SCH ×2 (05:12→16:45)
[2017-05-13 07:02] LABS: HEMATOCRIT 33.8 % (39.0-51.0); MEAN CELL VOLUME 86.5 FL (80.0-100.0); MEAN CORPUSCULAR HEMOGLOBIN 27.6 PG (27.0-34.0); PLATELET COUNT 193 TH/MM3 (150-450); RED BLOOD COUNT 3.91 MIL/MM3 (4.50-5.90); RED CELL DISTRIBUTION WIDTH 15.3 % (11.6-17.2); REVIEW FLAG FINAL; WHITE BLOOD COUNT 7.8 TH/MM3 (4.0-11.0)
[2017-05-13 07:27] LABS: BICARBONATE 27.2 MEQ/L (21.0-32.0); POTASSIUM 4.5 MEQ/L (3.5-5.1)
[2017-05-13] MEDS: ASPIRIN EC 81 MG TABEC PO SCH (08:06)
[2017-05-13] MEDS: LISINOPRIL 20 MG TAB PO SCH (08:06)
[2017-05-13] MEDS: CITALOPRAM HYDROBROMIDE 20 MG TAB PO SCH (08:07)
[2017-05-13] MEDS: SODIUM CHLORIDE 0.9% FLUSH 10 ML FLUSH IV FLUSH SCH ×2 (08:09→21:02)
--- NOTE | 2017-05-13 08:19 | PD.ORT.PN ---
Subjective Post Op Day #: 1 Subjective Remarks pain tolerable. Objective Vitals Vital Signs Date Time Temp Pulse Resp B/P Pulse Ox O2 Delivery O2 Flow Rate FiO2 05/13/17 04:00 96.1 65 20 131/83 98 05/13/17 00:17 18 05/13/17 00:00 96.9 76 20 134/80 97 05/12/17 22:13 97 Nasal Cannula 3.00 05/12/17 21:39 97.4 77 22 129/78 97 05/12/17 21:21 18 05/12/17 21:21 18 05/12/17 20:55 98.6 83 19 144/84 98 Nasal Cannula 3 05/12/17 20:45 83 22 146/78 97 Nasal Cannula 3 05/12/17 20:30 89 28 134/70 97 Nasal Cannula 3 05/12/17 20:15 93 23 143/83 99 Nasal Cannula 3 05/12/17 20:05 97 17 143/77 95 Nasal Cannula 3 05/12/17 20:01 98.3 97 18 137/73 98 Nasal Cannula 3 05/12/17 15:00 98.4 76 18 142/87 100 I/O 05/12/17 05/12/17 05/12/17 05/13/17 05/13/17 05/13/17 07:00 15:00 23:00 07:00 15:00 23:00 Intake Total 1955 ml 320 ml Output Total 50 ml 1700 ml Balance 1905 ml -1380 ml Intake Oral 255 ml 320 ml IV Total 700 ml Other 1000 ml Output Urine Total 0 ml 1700 ml Estimated Blood Loss 50 ml Other 0 ml # Voids 0 # Bowel Movements 0 0 Result Diagram: 05/13/17 0544 05/13/17 0544 Imaging Last 24 hours Impressions Knee X-Ray 05/12/17 1801 Signed Impressions: Service Date/Time: Friday, May 12, 2017 20:12 - CONCLUSION: Status post total knee arthroplasty. Víctor Tran MD Objective Remarks in bed, nad dressing c/d/i neg homans nvi Assessment & Plan Ortho Post Op Day #: 1 Problem List: Assessment and Plan s/p I&D L TKA with exchange of poly POD1 hx of L TKA 04/12/17 wbat daily dressing changes asa 81mg IV vanco ID consult patient will likely need extended IV abx therapy and placement of PICC ling pain control d/c planning home with c and pt, iv abx f/up dr. mendoza 1-2 weeks Jonathan Kay May 13, 2017 08:19
--- NOTE | 2017-05-13 08:20 | HHI.DCPOC ---
Discharge Care Plan Diagnosis: (1) Primary localized osteoarthrosis, lower leg Your Health Problems Are: Difficulty with ADL Goals to Promote Your Health * To prevent worsening of your condition and complications * To maintain your health at the optimal level Directions to Meet Your Goals Take your medications as prescribed Follow your dietary instruction Follow activity as directed Keep your appointments as scheduled Take your immunizations and boosters as scheduled If your symptoms worsen call your PCP, if no PCP go to Urgent Care Center or Emergency Room Smoking is Dangerous to Your Health. Avoid second hand smoke Call the 24-hour hour crisis hotline for domestic abuse at Jonathan Kay May 13, 2017 08:20
--- NOTE | 2017-05-13 08:21 | HHI.FF ---
Face to Face Verification Diagnosis: (1) Primary localized osteoarthrosis, lower leg Physical Therapy Gait training, Safety evaluation, Transfer training, bed to chair Knee: Total knee, Protocol: Left, Full weight bearing Left LE Weight Bearing: WB as tolerated Nursing RN: 3 days/week x 2 weeks Nursing: Moses teaching, Dressing changes, Other Dressing Changes: Daily dressing change Additional Instructions IV abx therapy I have seen patient Manuel Callahan on 05/13/17. My clinical findings support the need for the requested home health care services because: Limited ability to care for self High risk of falls I certify that my clinical findings support that this patient is homebound because: Post-op weakness Unsteady gait/balance Jonathan Kay May 13, 2017 08:21
--- NOTE | 2017-05-13 10:01 | HHI.PR ---
Subjective Remarks Follow up postoperative infection of knee, hypertension. Patient seen and examined today sitting up in chair comfortably in no apparent distress. Tolerating ambulation in halls. Patient does state that left knee pain is worse after ambulation and increased activity. States that pain medication works initially but seems to wear off early. Denies any new acute events overnight, denies any recent fever, chills, cough, shortness of breath, abdominal pain, nausea, vomiting, diarrhea. No BM as of yet. VSS. Objective Vitals Vital Signs Date Time Temp Pulse Resp B/P Pulse Ox O2 Delivery O2 Flow Rate FiO2 05/13/17 09:00 98 21 05/13/17 08:00 95.9 67 18 131/78 99 05/13/17 04:00 96.1 65 20 131/83 98 05/13/17 00:17 18 05/13/17 00:00 96.9 76 20 134/80 97 05/12/17 22:13 97 Nasal Cannula 3.00 05/12/17 21:39 97.4 77 22 129/78 97 05/12/17 21:21 18 05/12/17 21:21 18 05/12/17 20:55 98.6 83 19 144/84 98 Nasal Cannula 3 05/12/17 20:45 83 22 146/78 97 Nasal Cannula 3 05/12/17 20:30 89 28 134/70 97 Nasal Cannula 3 05/12/17 20:15 93 23 143/83 99 Nasal Cannula 3 05/12/17 20:05 97 17 143/77 95 Nasal Cannula 3 05/12/17 20:01 98.3 97 18 137/73 98 Nasal Cannula 3 05/12/17 15:00 98.4 76 18 142/87 100 I/O 05/12/17 05/12/17 05/12/17 05/13/17 05/13/17 05/13/17 07:00 15:00 23:00 07:00 15:00 23:00 Intake Total 1955 ml 320 ml Output Total 50 ml 1700 ml Balance 1905 ml -1380 ml Intake Oral 255 ml 320 ml IV Total 700 ml Other 1000 ml Output Urine Total 0 ml 1700 ml Estimated Blood Loss 50 ml Other 0 ml # Voids 0 # Bowel Movements 0 0 Result Diagram: 05/13/17 0544 05/13/17 0544 Imaging Last Impressions Knee X-Ray 05/12/17 1801 Signed Impressions: Service Date/Time: Friday, May 12, 2017 20:12 - CONCLUSION: Status post total knee arthroplasty. Víctor Tran MD Objective Remarks GENERAL: Well-nourished, well-developed patient in NAD. SKIN: Warm and dry. No rash. Left lower extremity post operative dressing c/d/i. HEENT: Normocephalic. Atraumatic. Pupils equal and round. No scleral icterus. No injection or drainage. No nasal bleeding or discharge. Mucous membranes pink and moist. NECK: Supple. Trachea midline. CARDIOVASCULAR: Regular rate and rhythm. S1, S2 noted. No murmur appreciated. RESPIRATORY: No accessory muscle use. Clear to auscultation. Breath sounds equal bilaterally. GASTROINTESTINAL: Abdomen soft, non-tender, nondistended. Normoactive bowel sounds x4. MUSCULOSKELETAL: No obvious deformities. Extremities without clubbing, cyanosis , or edema. NEUROLOGICAL: Awake and alert. No obvious cranial nerve deficits. Motor grossly within normal limits. 5/5 muscle strength in bilateral upper and lower extremities. Normal speech. PSYCHIATRIC: Appropriate mood and affect; insight and judgment normal. A/P Problem List: (1) Postoperative infection of knee ICD Code: T81.4XXA Status: Acute (2) HTN (hypertension) ICD Code: I10 Status: Acute Assessment and Plan Mr. Callahan is a 51 year old male with a history of hypertension, osteoarthritis, and depression who underwent left knee replacement on 04/12/17 with subsequent left knee irrigation and debridement, tibial polyethylene component exchange on 05/12/[address] Doan. Post operative left knee infection - I and D by Dr. Doan 05/12/17 - IV vancomycin per orthopedics. - Cultures sent and pending. Follow. - Continue Percocet 5/325 mg PO q4h PRN per pain scale. Morphine 3 mg IV q3h PRN pain >7. - ID consulted, appreciate input regarding antibiotic recommendations and possible PICC line placement. Hypertension, chronic: Controlled. - Continue Lisinopril. - Monitor trends in blood pressure readings and adjust treatment as indicated Depression: Continue home home Celexa. Constipation: No BM as of yet. Continue Colace 100 mg PO BID. Dulcolax supp PRN. DVT prophylaxis: SCDs/chemical prophylaxis per orthopedic surgery. Waldo,[facility] BREADING MACHINE TENDER May 13, 2017 10:01
--- NOTE | 2017-05-13 13:25 | MP ---
cc: ANATOLIY LUCAS M.D. DATE OF SURGERY 05/12/2017 PREOPERATIVE DIAGNOSIS Left knee infection status post total knee arthroplasty. POSTOPERATIVE DIAGNOSIS Left knee infection status post total knee arthroplasty. PROCEDURE Irrigation and debridement of left knee with exchange of polyethylene tibial component. SURGEON Dr. Anatoliy Lucas COMMAND AND CONTROL SYSTEMS INTEGRATOR Semaj Kay PA-C ANESTHESIA General. ESTIMATED BLOOD LOSS 100 cc COMPLICATIONS None. JUSTIFICATION This patient is a 51-year-old male with severe osteoarthritis of the left knee. He had undergone previous left total knee arthroplasty. He developed postoperative hematoma involving the prepatellar space which subsequently caused increasing pain and then development of some redness in this area. I did perform an aspiration of the prepatellar space and it did grow out coag-negative Staph aureus which was sensitive to oral antibiotics. The patient was placed on oral antibiotics but has not had resolution of his symptoms or significant improvement. He was counseled as to the risks, benefits and alternatives to the above-named, proposed procedure. He did wish to procedure with the surgery. PROCEDURE IN DETAIL Written consent was obtained. The patient was identified by name, taken to the operating room, placed supine on the operating room table. The left knee was then prepped with Chloraprep solution. I performed an arthrocentesis of the knee joint and sent that fluid for culture and sensitivity. Subsequently, a well-padded tourniquet was placed on the left thigh. The left lower extremity was prepped and draped using as isopropyl alcohol, Hibiclens solution and Chloraprep solution. The leg was elevated and the tourniquet inflated to 250 mmHg. A longitudinal incision was made over the anterior aspect of the left knee. The prepatellar space was opened and there was a large copious amount of hematoma in this region which was evacuated. A curet was used to curet soft tissues and a #10 blade scalpel was used to perform extensive debridement in this area. The prepatellar space was then irrigated with 6 liters of sterile saline pulse lavage antibiotic impregnated solution. At this point an arthrotomy was performed. Extensive debridement synovectomy was performed within the knee joint. The polyethylene component was removed to allow exposure of the skiff operator portion of the knee and the knee joint was then thoroughly irrigated with 6 liters of sterile saline pulse lavage antibiotic impregnated solution. A new 8 x 5-mm polyethylene rotating platform tibia insert was placed. The tourniquet was deflated. Bovie cautery was used for hemostasis. The arthrotomy incision was closed with #1 Vicryl suture, the subcutaneous tissue with 2-0 Vicryl suture and the skin was closed with chris. Sterile dressing was applied. The patient tolerated the procedure well. No intraoperative complication noted. Semaj Kay, physician conventions assistant-certified, was present during the entire procedure to include patient positioning and the procedure itself. The medical necessity of a physician conventions assistant was indicated in this case due to the complexity of the procedure itself. He assisted with appropriate exposure and retraction as well as removal and implantation of the new tibial component. MD RAMBO Ramírez/BRYSON /7:42 PM /1:05 PM
--- NOTE | 2017-05-13 14:13 | MB ---
cc: YUKO SAM MD DATE OF CONSULTATION 05/13/[address] Doan REASON FOR CONSULTATION Left total knee infection with coag negative staph by culture of prepatellar space. HISTORY OF PRESENT ILLNESS This is a 51-year-old white male who underwent left total knee arthroplasty on April 12 2017. The patient developed pain and redness and swelling of the left knee. He reports that there was a few blisters along the incision after the procedure and he was given oral antibiotic. He states that he has been through two or three courses of antibiotics and the last was given prior to admission. He states that the antibiotics really was not helping and he was evaluated by orthopedics and was admitted to the hospital for further I&D. This procedure was performed yesterday and a culture was taken. The culture is pending. The patient has no fever, chills, nausea or vomiting or other symptoms. This consultation is requested for antibiotic management. Culture of the fluid from the procedure yesterday has no growth so far. The patient is afebrile. White blood cell count is normal. PAST MEDICAL HISTORY Hypertension, anxiety disorder. History of left knee arthroplasty in November 2016. Appendectomy, right elbow surgery. Osteoarthritis. ALLERGIES NO KNOWN DRUG ALLERGIES. MEDICATIONS 1. Vancomycin. 2. Aspirin. 3. Prinivil. 4. Celexa. 5. Colace. 6. Multiple vitamin. 7. Percocet 5 p.r.n. 8. Zofran p.r.n. SOCIAL HISTORY The patient is . No tobacco. Positive alcohol use. No illicit drugs. FAMILY HISTORY Noncontributory. REVIEW OF SYSTEMS Negative on 10-point review except for left knee pain. PHYSICAL EXAMINATION GENERAL: This is a pleasant well-developed male who is in no acute distress. He is awake and alert and oriented. VITAL SIGNS: Temperature 96.6, BP 127/75, respirations 18, heart rate 68. HEAD/EARS/EYES/NOSE/THROAT: Extraocular movements grossly intact, pupils reactive to light. No icterus. Oropharynx no visible lesions. NECK: Supple. No adenopathy. LUNGS: Clear, decreased breath sounds throughout. HEART: Regular rate and rhythm without murmurs, rubs or gallops. ABDOMEN: Bowel sounds present, soft, nontender. RECTAL: Not performed. EXTREMITIES: Left knee is wrapped in a surgical dressing. This was not unwrapped for inspection at this time. The lower extremities have no edema. The right lower extremity has no clubbing or cyanosis. NEURO: Nonfocal. SKIN: No rash. PSYCHIATRIC: The patient calm and cooperative. LABORATORY DATA WBC 7.8, platelets 193, hemoglobin 10.8, creatinine 0.84, BUN 11, sodium 136. IMPRESSION 1. Infected left total knee arthroplasty. Patient status post I&D. Repeat wound culture has no growth at 24 hours. The patient reportedly had prior cultures with staph coag negative. RECOMMENDATIONS 1. Continue the vancomycin. 2. Await the report on the wound culture at 48 hours and if no further growth will give vancomycin intravenously for 4-6 weeks. If he has gram-negative bacteria that will also need to be treated as well, probably instead of the previous culture of coag-negative staph. Thank you for this consultation. The patient's progress will be followed and tomorrow I will monitor the culture and make a determination on antibiotics. Yuko Sam MD FD/GALEN /1:35 PM /2:05 PM
[2017-05-13] MEDS: ZOLPIDEM TARTRATE 5 MG TAB PO PRN (21:01)
[2017-05-13] MEDS: MULTIVITAMINS/MINERALS THERAPEUTIC TAB PO SCH (21:02)
[2017-05-13] MEDS: DOCUSATE SODIUM 100 MG CAP PO SCH (21:02)
[2017-05-14] VITALS: BP 122/69; PULSE 76; RESP 18; TEMP 98.2; O2SAT 96
[2017-05-14] MEDS: VANCOMYCIN INJ 1,000 MG in SODIUM CHLOR 0.9% 250 ML INJ 250 ML IV SCH ×2 (05:05→17:14)
[2017-05-14] MEDS: SODIUM CHLOR 0.9% 1000 ML INJ 1,000 ML IV SCH ×2 (05:05→13:00)
[2017-05-14 05:35] LABS: HEMATOCRIT 31.1 % (39.0-51.0); MEAN CELL VOLUME 85.8 FL (80.0-100.0); MEAN CORPUSCULAR HEMOGLOBIN 28.5 PG (27.0-34.0); MEAN CORPUSCULAR HGB CONC 33.2 % (32.0-36.0); PLATELET COUNT 187 TH/MM3 (150-450); RED BLOOD COUNT 3.63 MIL/MM3 (4.50-5.90); RED CELL DISTRIBUTION WIDTH 14.9 % (11.6-17.2); REVIEW FLAG FINAL; WHITE BLOOD COUNT 7.6 TH/MM3 (4.0-11.0)
[2017-05-14 06:05] LABS: BICARBONATE 27.4 MEQ/L (21.0-32.0); POTASSIUM 4.4 MEQ/L (3.5-5.1)
[2017-05-14] MEDS: MORPHINE SULFATE 8 MG/ML INJ IV PUSH PRN ×2 (07:18→11:40)
[2017-05-14 08:00] VITALS: BP 131/79; PULSE 77; RESP 18; TEMP 97.1; O2SAT 98
[2017-05-14 08:48] VITALS: O2SAT 97
[2017-05-14] MEDS: SODIUM CHLORIDE 0.9% FLUSH 10 ML FLUSH IV FLUSH SCH (09:00)
--- NOTE | 2017-05-14 09:10 | HHI.FF ---
Face to Face Verification Diagnosis: (1) Postoperative infection of knee Home Health Nursing Order: Wound care and dressing changes IV medication administration I have seen patient Manuel Callahan on 05/14/17. My clinical findings support the need for the requested home health care services because: Limited ability to care for self I certify that my clinical findings support that this patient is homebound because: Post-op weakness Unsteady gait/balance Adam Tierney MD May 14, 2017 09:10
[2017-05-14] MEDS: ASPIRIN EC 81 MG TABEC PO SCH (09:38)
[2017-05-14] MEDS: MULTIVITAMINS/MINERALS THERAPEUTIC TAB PO SCH (09:39)
[2017-05-14] MEDS: CITALOPRAM HYDROBROMIDE 20 MG TAB PO SCH (09:39)
[2017-05-14] MEDS: DOCUSATE SODIUM 100 MG CAP PO SCH (09:39)
[2017-05-14] MEDS: LISINOPRIL 20 MG TAB PO SCH (09:39)
--- NOTE | 2017-05-14 10:30 | PD.ORT.PN ---
Subjective Post Op Day #: 2 Subjective Remarks pain tolerable. doing ok. Objective Vitals Vital Signs Date Time Temp Pulse Resp B/P Pulse Ox O2 Delivery O2 Flow Rate FiO2 05/14/17 08:48 97 21 05/14/17 08:00 97.1 77 18 131/79 98 05/14/17 00:00 98.2 76 18 122/69 96 05/13/17 21:06 18 05/13/17 20:09 18 05/13/17 20:00 97.8 84 20 123/66 99 05/13/17 18:11 99 21 05/13/17 16:00 96.0 80 18 124/69 100 05/13/17 12:00 96.6 68 18 127/75 98 I/O 05/13/17 05/13/17 05/13/17 05/14/17 05/14/17 05/14/17 07:00 15:00 23:00 07:00 15:00 23:00 Intake Total 320 ml 360 ml 480 ml 480 ml Output Total 1700 ml 725 ml 1350 ml Balance -1380 ml -365 ml 480 ml -870 ml Intake Oral 320 ml 360 ml 480 ml 480 ml Output Urine Total 1700 ml 725 ml 1350 ml # Voids 4 2 # Bowel Movements 0 0 0 0 Result Diagram: 05/14/17 04205/14/17426 Imaging Last 24 hours Impressions Knee X-Ray 05/12/17 180 Signed Impressions: Service Date/Time: Friday, May 12, 2017 20:12 - CONCLUSION: Status post total knee arthroplasty. Víctor Tran MD Objective Remarks in bed, nad incision no active drainage, minimal erythema neg homans nvi Assessment & Plan Ortho Post Op Day #: 2 Problem List: Assessment and Plan s/p I&D L TKA with exchange of poly POD2 hx of L TKA 04/12/17 wbat daily dressing changes asa 81mg IV vanco ID consult awaiting cultures taken in OR patient will likely need extended IV abx therapy and placement of PICC line pain control d/c planning home with [facility] and pt, iv abx f/up dr. mendoza 2 weeks Jonathan Kay May 14, 2017 10:30
--- NOTE | 2017-05-14 11:10 | HHI.PR ---
Subjective Remarks f/u L knee infection Afebrile, left knee pain manageable. No diarrhea, nausea or vomiting. Objective Vitals Vital Signs Date Time Temp Pulse Resp B/P Pulse Ox O2 Delivery O2 Flow Rate FiO2 05/14/17 08:48 97 21 05/14/17 08:00 97.1 77 18 131/79 98 05/14/17 00:00 98.2 76 18 122/69 96 05/13/17 21:06 18 05/13/17 20:09 18 05/13/17 20:00 97.8 84 20 123/66 99 05/13/17 18:11 99 21 05/13/17 16:00 96.0 80 18 124/69 100 05/13/17 12:00 96.6 68 18 127/75 98 I/O 05/13/17 05/13/17 05/13/17 05/14/17 05/14/17 05/14/17 07:00 15:00 23:00 07:00 15:00 23:00 Intake Total 320 ml 360 ml 480 ml 480 ml Output Total 1700 ml 725 ml 1350 ml Balance -1380 ml -365 ml 480 ml -870 ml Intake Oral 320 ml 360 ml 480 ml 480 ml Output Urine Total 1700 ml 725 ml 1350 ml # Voids 4 2 # Bowel Movements 0 0 0 0 Result Diagram: 05/14/1742605/14/17426 Objective Remarks Not in distress, well-nourished, looks stated age Normal rate and regular rhythm, no murmurs gallops or rubs appreciated. Clear to auscultation and symmetric bilaterally, normal respiratory effort. Normal bowel sounds, soft, non-tender, nondistended, no guarding. Left knee dressings in place AAO x3, no cranial nerve deficits, moves all 4 extremities, no focal neurologic deficits A/P Problem List: (1) Postoperative infection of knee ICD Code: T81.4XXA Status: Acute (2) HTN (hypertension) ICD Code: I10 Status: Acute Assessment and Plan Mr. Callahan is a 51 year old male with a history of hypertension, osteoarthritis, and depression who underwent left knee replacement on 04/12/17 with subsequent left knee irrigation and debridement, tibial polyethylene component exchange on 05/12/[address] Doan. Post operative left knee infection - I and D by Dr. Doan 05/12/17, discussed with infectious disease, would likely need vancomycin for 4-6 weeks, insert PICC line today. Possible clearance from infectious disease today. - Continue Percocet 5/325 mg PO q4h PRN per pain scale. Will need home health care. Wound culture during this admission remains negative. Hypertension, chronic: Controlled. - Continue Lisinopril. - Monitor trends in blood pressure readings and adjust treatment as indicated Depression: Continue home home Celexa. Constipation: No BM as of yet. Continue Colace 100 mg PO BID. Dulcolax supp PRN. DVT prophylaxis: SCDs/chemical prophylaxis per orthopedic surgery. Discharge Planning Cleared for discharge per hospitalist perspective after PICC line is placed. Adam Tierney MD May 14, 2017 11:10
--- NOTE | 2017-05-14 11:16 | HHI.FF ---
Infusion Therapy Location of Infusion Therapy: Home Health Care IV Infusion Order Patient Information Patient Weight 101.1 kg Diagnosis: (1) Postoperative infection of knee Coded Allergies: No Known Allergies (Unverified , 05/12/17) Administer Medication Vancomycin 1 gram IV q 12 hours Stop Treatment: Jun 23, 2017 Additional Information Venous access: PICC Line Additional Instructions [x] Peripheral flush and dressing changes per protocol [x] Implanted port and central commercial lines manager: * Implanted port: 10 ml Normal Saline followed by 5 ml Heparin 100 units/ml Heparin flush after each use and monthly to maintain. [] May leave port accessed during therapy. [] May leave peripheral site accessed for duration of therapy. [x] If patient has SOB or respiratory distress, check oxygen saturation. If less than 90% or clinical signs of respiratory distress, administer oxygen at 2 L/min. via nasal cannula and notify physician. [x] Anaphylaxis/Reaction orders: * Stop infusion. * Keep IV line open with saline flush. * Notify physician. * Monitor vital signs every 15 minutes until symptoms resolve. * Check Oxygen saturation; Oxygen at 2 L/min. via nasal cannula if less than 90% or clinical signs of respiratory distress. * Administer diphenhydramine (Benadryl) 25 mg IV STAT, (unless patient has received as pre-med). May repeat once, if necessary. * Solu-Cortef 250 mg IVP over 30-60 seconds, use 100 mg vials for each dissolution. * Epinephrine (1mg/1 ml) 0.3 mg subcutaneously or IVP now with any signs of respiratory distress. * Check with physician for new additional pre-med orders if patient is re- challenged or re-treated. [x] May remove PICC line when treatment complete, after confirming with Physician. [x] If the patient is admitted to the hospital, the ED, or transferred via [facility] , complete transfer form including medication reconciliation order sheet. Laboratory Tests Weekly Labs: BMP, CBC w/diff, Vancomycin Trough Additional Information Follow up with Dr Albina Argueta of Infectious disease in 1 week for management of antibiotics. Deandre Scott MD May 14, 2017 11:16
--- NOTE | 2017-05-14 11:40 | HHI.IDPN ---
Note Infectious Disease Note Patient notes pain in hi left knee. No other complaints. Afebrile. Surgical wound culture has no growth. The patient is afebrile. White blood cell count is normal. PAST MEDICAL HISTORY Hypertension, anxiety disorder. History of left knee arthroplasty in November 2016. Appendectomy, right elbow surgery. Osteoarthritis. ALLERGIES NO KNOWN DRUG ALLERGIES. ANTIBIOTICS: Vancomycin. SOCIAL HISTORY The patient is . No tobacco. Positive alcohol use. No illicit drugs. OBJECTIVE: Vital Signs Date Time Temp Pulse Resp B/P Pulse Ox O2 Delivery O2 Flow Rate FiO2 05/14/17 08:48 97 21 05/14/17 08:00 97.1 77 18 131/79 98 05/14/17 00:00 98.2 76 18 122/69 96 05/13/17 21:06 18 05/13/17 20:09 18 05/13/17 20:00 97.8 84 20 123/66 99 05/13/17 18:11 99 21 05/13/17 16:00 96.0 80 18 124/69 100 05/13/17 12:00 96.6 68 18 127/75 98 05/13/17 05/13/17 05/14/17 15:00 23:00 07:00 Intake Total 360 ml 480 ml 480 ml Output Total 725 ml 1350 ml Balance -365 ml 480 ml -870 ml Intake Oral 360 ml 480 ml 480 ml Output Urine Total 725 ml 1350 ml # Voids 4 2 # Bowel Movements 0 0 0 Laboratory Tests Test 05/13/17 05/14/17 05:44 04:27 White Blood Count 7.8 TH/MM3 7.6 TH/MM3 Red Blood Count 3.91 MIL/MM3 3.63 MIL/MM3 Hemoglobin 10.8 GM/DL 10.3 GM/DL Hematocrit 33.8 % 31.1 % Mean Corpuscular Volume 86.5 FL 85.8 FL Mean Corpuscular Hemoglobin 27.6 PG 28.5 PG Mean Corpuscular Hemoglobin 32.0 % 33.2 % Concent Red Cell Distribution Width 15.3 % 14.9 % Platelet Count 193 TH/MM3 187 TH/MM3 Mean Platelet Volume 7.3 FL 7.6 FL Laboratory Tests Test 05/13/17 05/14/17 05:44 04:27 Sodium Level 136 MEQ/L 139 MEQ/L Potassium Level 4.5 MEQ/L 4.4 MEQ/L Chloride Level 102 MEQ/L 104 MEQ/L Carbon Dioxide Level 27.2 MEQ/L 27.4 MEQ/L Anion Gap 7 MEQ/L 8 MEQ/L Blood Urea Nitrogen 11 MG/DL 9 MG/DL Creatinine 0.84 MG/DL 0.79 MG/DL Estimat Glomerular Filtration 96 ML/MIN 103 ML/MIN Rate Random Glucose 104 MG/DL 88 MG/DL Calcium Level 9.0 MG/DL 8.8 MG/DL Microbiology Date/Time Procedure Status Source Growth 05/12/17 18:23 Gram Stain - Final Resulted Fluid Other 05/12/17 18:23 Body Fluid Culture - Preliminary Resulted Fluid Other NO GROWTH IN 48 HOURS. 05/12/17 18:23 Acid Fast Stain Received Fluid Other Pending 05/12/17 18:23 Mycobacterial Culture Received Fluid Other Pending 05/12/17 18: Fungal Smear - Final Resulted Fluid Other NO FUNGAL ELEMENTS SEEN. 05/12/17 18: Fungal Culture Resulted Fluid Other Pending PHYSICAL EXAMINATION GENERAL: This is a pleasant well-developed male who is in no acute distress. HEAD/EARS/EYES/NOSE/THROAT: Extraocular movements grossly intact, pupils reactive to light. No icterus. Oropharynx no visible lesions. NECK: Supple. No adenopathy. LUNGS: Clear, decreased breath sounds. HEART: Regular rate and rhythm without murmurs, rubs or gallops. EXTREMITIES: Left knee has swelling. No erythema. NEURO: Nonfocal. SKIN: No rash. PSYCHIATRIC: The patient calm and cooperative. IMPRESSION 1. Infected left total knee arthroplasty. Patient status post I&D. Prior noted to have cultures staph coag negative. RECOMMENDATIONS Continue the vancomycin IV x 6 weeks. Infusion form filled out with labs. manager provider relations notified. PICC ordered. Follow up with Dr Argueta outpatient in 1 week. Can be discharged when antibiotics arrangements are made. Deandre Scott MD May 14, 2017 11:40
[2017-05-14 12:00] VITALS: BP 129/76; PULSE 65; RESP 18; TEMP 96.8; O2SAT 99
[2017-05-14] MEDS ORDERED: SODIUM CHLORIDE 0.9% FLUSH 10 ML FLUSH IV FLUSH PRN (12:45)
--- NOTE | 2017-05-14 13:28 | RADRPT ---
EXAM DATE/TIME: 05/14/2017 12:34 [facility] COMPARISON: No previous studies available for comparison. INDICATIONS : Post PICC line placement MEDICAL HISTORY : post surgical infection SURGICAL HISTORY : left knee replacement ENCOUNTER: Subsequent ACUITY: 1 day PAIN SCORE: 0/10 LOCATION: Right chest FINDINGS: A single view of the chest demonstrates the lungs to be symmetrically aerated without evidence of mas s, infiltrate or effusion. The cardiomediastinal contours are unremarkable. Osseous structures are intact. PICC line in good position. Tip is at the cavoatrial junction. CONCLUSION: Right-sided PICC line position. Clear lungs. Trever Connell Jr., MD on May 14, 2017 at 13:05 Board Certified Radiologist. This report was verified electronically.
[2017-05-14 16:00] VITALS: BP 131/69; PULSE 68; RESP 18; TEMP 98.3; O2SAT 97
[2017-05-15] MEDS ORDERED: SODIUM CHLORIDE 0.9% FLUSH 10 ML FLUSH IV FLUSH SCH (09:00)
== END 2017-05-14 19:13 | disposition home health service (06) | DRG 487 ==
LOC: HSDI 05-12 14:46 → N07A 05-12 21:01
PROVIDERS: ADMIT Orthopaedic Surgery Sports Medicine; ATTEND Orthopaedic Surgery Sports Medicine
PROC: 0SUW09Z Supplement Left Knee Joint, Tibial Surface with Liner, Open Approach (ICD-10-PCS; 2017-05-12)
PROC: 0SCD0ZZ Extirpation of Matter from Left Knee Joint, Open Approach (ICD-10-PCS; 2017-05-12)
PROC: 0SBD0ZZ Excision of Left Knee Joint, Open Approach (ICD-10-PCS; 2017-05-12)
PROC: 0S9D3ZX Drainage of Left Knee Joint, Percutaneous Approach, Diagnostic (ICD-10-PCS; 2017-05-12)
PROC: 0SPD09Z Removal of Liner from Left Knee Joint, Open Approach (ICD-10-PCS; principal; 2017-05-12 18:13)
PROC: 02HV33Z Insertion of Infusion Device into Superior Vena Cava, Percutaneous Approach (ICD-10-PCS; 2017-05-14)
PROC: B548ZZA Ultrasonography of Superior Vena Cava, Guidance (ICD-10-PCS; 2017-05-14)
DX: T84.54XA Infection and inflammatory reaction due to internal left knee prosthesis, initial encounter (principal); I10 Essential (primary) hypertension; F32.9 Major depressive disorder, single episode, unspecified; K59.00 Constipation, unspecified; Z96.651 Presence of right artificial knee joint
CPT/HCPCS: 36569; 71010; 73560; 76937; 80048; 85027; 86850; 86900; 86901; 87015; 87070; 87102; 87116; 87205; 87206; 94150; C1776; J1580; J2175; J2250; J2270; J2405; J3010; J3370; J7030; J7050; J7120; L1830